=== PATIENT | male | born 1965 | race Caucasian/White ===

== ENCOUNTER 2019-12-14 08:58 | Day surgery (SDC) | payer BC, SELFPAY ==
--- NOTE | 2019-12-13 10:32 | HO.ANESPROP2 ---
Documented by User: Sherrell Araya 12/13/19 10:33 HPI - Anesthesia Eval Consult details Narrative: 54yo M for colonoscopy [facility] Past Medical History Medical History (Updated 12/13/19 @ 10:32 by Sherrell Araya) Diabetes Hypothyroidism Rectal cancer Surgical History Surgical History Hx of cholecystectomy Hx of colonoscopy Hx of hernia repair Social History Social History Smoking Status: Never smoker Second Hand Smoke Exposure: No Use of substances other than those prescribed or required for medical reasons: No Have you been hit, kicked, punched, or otherwise hurt by someone within the past year? If so, by whom?: No Advance Directives: No Advance Directives Information Provided: No Meds Allergies Allergy/AdvReac Type Severity Reaction Status Date / Time No Known Allergies Allergy Verified 12/14/19 09:41 Home Medications Medication Instructions Recorded Confirmed Type atorvastatin 1 tab PO DAILY 12/10/19 12/10/19 History canagliflozin [Invokana] 1 tab PO QAM 12/10/19 12/10/19 History gabapentin PO 12/10/19 History insulin glargine [Lantus U-100 15 unit SUBCUT BEDTIME 12/10/19 12/10/19 History Insulin] levothyroxine PO 12/10/19 History metformin 1 tab PO BID 12/10/19 12/10/19 History venlafaxine 1 cap PO DAILY 12/10/19 12/10/19 History Exam Exam Date and Time: December 13, 2019 1032 Pertinent Lab Results Pertinent Lab Results: Laboratory Tests 07/06/19 13:22 Sodium 139 Potassium 4.4 Chloride 101 BUN 18 H Creatinine 1.09 Assessment and Plan Assessment Anesthesia Assessment: Chart Reviewed Documented by User: Marialuisa Fermin 12/14/19 10:28 [facility] Past Medical History Medical History (Updated 12/13/19 @ 10:32 by Sherrell Araya) Diabetes Hypothyroidism Rectal cancer Family History Family history of problems with anesthesia: No Surgical History Surgical History Hx of cholecystectomy Hx of colonoscopy Hx of hernia repair History of Problems with Anesthesia: No Social History Social History Smoking Status: Never smoker Second Hand Smoke Exposure: No Use of substances other than those prescribed or required for medical reasons: No Have you been hit, kicked, punched, or otherwise hurt by someone within the past year? If so, by whom?: No Advance Directives: No Advance Directives Information Provided: No Meds Allergies Allergy/AdvReac Type Severity Reaction Status Date / Time No Known Allergies Allergy Verified 12/14/19 09:41 Home Medications Medication Instructions Recorded Confirmed Type atorvastatin 1 tab PO DAILY 12/10/19 12/10/19 History canagliflozin [Invokana] 1 tab PO QAM 12/10/19 12/10/19 History gabapentin PO 12/10/19 History insulin glargine [Lantus U-100 15 unit SUBCUT BEDTIME 12/10/19 12/10/19 History Insulin] levothyroxine PO 12/10/19 History metformin 1 tab PO BID 12/10/19 12/10/19 History venlafaxine 1 cap PO DAILY 12/10/19 12/10/19 History Exam Height,Weight and Vital Signs: Ht: 5ft 11 Wt: 90.9kg Vital Signs Temp Pulse Resp BP Pulse Ox 12/14/19 09:49 97.6 F 74 16 119/78 98 Pertinent Lab Results Pertinent Lab Results: 12/14/19 09:48 Glucose, Whole Blood Routine Laboratory Last Values POC Glucose 149 mg/dL (60-115) H 12/14/19 09:48 Airway Mallampati Class: II TM Dist: >3cm Neck ROM: Full Loose/Missing/Broken Teeth: Yes Heart: RRR Lungs: CTAB Assessment and Plan Assessment Anesthesia Assessment: Anesthesia Plan Discussed and Chart Reviewed Final Anesthetic Review NPO: Yes ASA Class: II Final Preanesthetic Review: No Changes in Pt Med Stat, Meds/Allgs Chart Reviewed, Consent Obtained/Reviewed and Anes Risks/Benef Reviewed Patient Risk: Low Procedure Risk: Low Anesthetic Plan Anesthetic Plan: MAC: Disposition: Standard PACU
[2019-12-14 09:49] VITALS: BP 119/78; PULSE 74; RESP 16; TEMP 36.4; O2SAT 98
[2019-12-14] MEDS: Lactated Ringers 1,000 ML 100 ML IVCONT (10:00)
[2019-12-14 10:04] LABS: Glucose, Whole Blood 149 mg/dL (60-115)
[2019-12-14 11:22] VITALS: BP 199/66; PULSE 79; RESP 16; TEMP 36.9; O2SAT 96
--- NOTE | 2019-12-14 11:27 | PM.PROC ---
Brief Operative Note Date of procedure: 12/14/19 Pre-op diagnosis: Colon cance screening/Hx of Carcinoid Post-op diagnosis: other (1 + Internal hemorrhoids, minor diverticulosis) Procedure: Colonoscopy Anesthesia: MAC (MAKENNA Eason) Surgeon: Naima Martinez Estimated blood loss (mL): 0 Pathology: none sent Condition: stable Disposition: PACU
[2019-12-14 11:42] VITALS: BP 112/77; PULSE 76; RESP 12; O2SAT 96
[2019-12-14 11:57] VITALS: BP 113/82; PULSE 76; RESP 12; TEMP 36.6; O2SAT 97
--- NOTE | 2019-12-15 10:06 | OP_ITS ---
SURGEON: Naima Martinez MD PROCEDURE PERFORMED: Colonoscopy. ESTIMATED BLOOD LOSS: No blood loss. COMPLICATIONS: No complications. ANESTHESIA: Monitored. ANESTHESIOLOGIST: Bruna Anderson CRNA ASSISTANTS: No assistant hvac mechanic. SPECIMENS: Specimens removed; none. PREOPERATIVE DIAGNOSES: Colon cancer screening, history of rectal carcinoid. POSTOPERATIVE DIAGNOSES: Negative exam, 1+ internal hemorrhoids, occasional diverticulum in the rectosigmoid region. ENGLISH TUTOR: Dr. Martinez. CONDITION: Postop, stable. FINDINGS: Digital rectal exam revealed prostate to be normal to digital palpation. Video colonoscope was introduced without difficulty. It was navigated into the rectosigmoid. There was an occasional diverticulum seen in this area. Scope easily passed through sigmoid, descending, transverse, ascending colon down into the cecum. Appendiceal orifice was seen. Ileocecal valve was well seen. No mucosal abnormalities were appreciated. Slow withdrawal of the scope was appreciated. Prep was excellent. Good mucosal detail was seen. Slow withdrawal of scope. Good rotational views. No mucosal lesions were appreciated. Exam of the rectum showed no suspicious lesions. Anorectal verge was clear. There were 1+ internal hemorrhoids noted in the anal canal. PLAN AND CURRENT RECOMMENDATIONS: Repeat asymptomatic screening in this patient will continue to be 5 years. GRAFT OR IMPLANTS: No grafts or implants. Naima Martinez MD MEN/MODL / [id number] MTDD
== END 2019-12-14 12:50 | disposition home or self-care (01) ==
PROVIDERS: PCP Internal Medicine; Visit Provider Internal Medicine Gastroenterology
PROC: 0DJD8ZZ Inspection of Lower Intestinal Tract, Via Natural or Artificial Opening Endoscopic (ICD-10-PCS; CPT 45378; principal; 2019-12-14 10:00)
DX: Z12.11 Encounter for screening for malignant neoplasm of colon (principal); Z85.040 Personal history of malignant carcinoid tumor of rectum; K57.30 Diverticulosis of large intestine without perforation or abscess without bleeding; K64.8 Other hemorrhoids; E13.9 Other specified diabetes mellitus without complications; Z79.84 Long term (current) use of oral hypoglycemic drugs; Z79.899 Other long term (current) drug therapy; Z90.49 Acquired absence of other specified parts of digestive tract; Z87.891 Personal history of nicotine dependence
CPT/HCPCS: 45378; 82947

== ENCOUNTER 2020-03-31 10:16 | Outpatient (REF) | payer BC, SELFPAY ==
[2020-03-31 13:00] LABS: Estimated Average Glucose 174 mg/dL; Hemoglobin A1c % 7.7 %
[2020-03-31 13:13] LABS: Alanine Aminotransferase 30 U/L (0-40); Albumin Level 4.7 g/dL (3.5-5.0); Alkaline Phosphatase 61 U/L (39-117); Anion Gap 15 (12-20); Aspartate Amino Transferase 22 U/L (5-37); Bilirubin Total 0.7 mg/dL (0.0-1.0); Blood Urea Nitrogen 19 mg/dL (9-16); Calcium 9.3 mg/dL (8.4-10.2); Carbon Dioxide 27 mmol/L (22-29); Chloride 102 mmol/L (96-108); Cholesterol 178 mg/dL; Estimated Glomerular Filt Rate > 60; Glucose Fasting 126 mg/dL (60-99); HDL Cholesterol 49 mg/dL; LDL Cholesterol Calculated 118 mg/dl; Potassium 4.5 mmol/L (3.3-5.1); Sodium 139 mmol/L (135-145); Total Protein 7.4 g/dL (6.5-8.0); Triglycerides 55 mg/dL
[2020-03-31 13:38] LABS: Thyroid Stimulating Hormone 0.62 uIU/mL (0.32-4.0)
[2020-03-31 13:45] LABS: Prostate Specific Antigen 2.05 ng/mL (<0.05-4.0); T4 Thyroxine 9.2 ug/dL (4.5-12.0)
== END 2020-03-31 10:17 | disposition home or self-care (01) ==
LOC: HO.MANLR 10:16
PROVIDERS: PCP Internal Medicine; Visit Provider Internal Medicine
DX: E11.9 Type 2 diabetes mellitus without complications (principal); E03.9 Hypothyroidism, unspecified; E78.00 Pure hypercholesterolemia, unspecified
CPT/HCPCS: 36415; 80053; 80061; 83036; 84153; 84436; 84443

== ENCOUNTER 2020-06-29 09:38 | Outpatient (REF) | payer BC, SELFPAY ==
[2020-06-29 11:01] LABS: Estimated Average Glucose 174 mg/dL; Hemoglobin A1c % 7.7 %
[2020-06-29 11:51] LABS: Alanine Aminotransferase 35 U/L (0-40); Albumin Level 4.6 g/dL (3.5-5.0); Alkaline Phosphatase 61 U/L (39-117); Anion Gap 14 (12-20); Aspartate Amino Transferase 29 U/L (5-37); Bilirubin Total 1.1 mg/dL (0.0-1.0); Blood Urea Nitrogen 18 mg/dL (9-16); Calcium 9.6 mg/dL (8.4-10.2); Carbon Dioxide 30 mmol/L (22-29); Chloride 103 mmol/L (96-108); Estimated Glomerular Filt Rate > 60; Glucose Random 122 mg/dL (60-115); Potassium 4.6 mmol/L (3.3-5.1); Sodium 142 mmol/L (135-145); Total Protein 7.3 g/dL (6.5-8.0)
[2020-06-29 11:58] LABS: Prostate Specific Antigen 2.22 ng/mL (<0.05-4.0); Thyroid Stimulating Hormone 1.37 uIU/mL (0.32-4.0)
== END 2020-06-29 09:39 | disposition home or self-care (01) ==
LOC: HO.WFDLDS 09:38
PROVIDERS: Visit Provider Internal Medicine
DX: Z12.5 Encounter for screening for malignant neoplasm of prostate (principal); E11.9 Type 2 diabetes mellitus without complications; E03.9 Hypothyroidism, unspecified; E78.00 Pure hypercholesterolemia, unspecified
CPT/HCPCS: 36415; 80053; 83036; 84153; 84436; 84443

== ENCOUNTER 2020-12-27 09:51 | Outpatient (REF) | payer BC, SELFPAY ==
[2020-12-27 11:12] LABS: Estimated Average Glucose 174 mg/dL; Hemoglobin A1c % 7.7 %
== END 2020-12-27 09:52 | disposition home or self-care (01) ==
LOC: HO.MANLDS 09:51
PROVIDERS: PCP Internal Medicine; Visit Provider Internal Medicine
DX: E11.9 Type 2 diabetes mellitus without complications (principal)
CPT/HCPCS: 36415; 83036

== ENCOUNTER 2021-05-04 08:33 | Outpatient (REF) | payer BC, SELFPAY ==
[2021-05-04 11:37] LABS: MANUAL DIFF FLAG NO
[2021-05-04 11:48] LABS: Basophils Percent Auto 0.6 % (0-2); Eosinophils Absolute Auto 0.2 X10*3/uL (0.0-0.4); Eosinophils Percent Auto 3.3 % (0-4); Hematocrit 48.2 % (42.0-52.0); Hemoglobin 15.4 g/dl (14.0-18.0); Imm Gran Abs Auto 0.04 X10*3/uL (0.00-0.03); Imm Gran Pct Auto 0.6 % (0.0-0.4); Lymphocytes Absolute Auto 2.7 X10*3/uL (1.2-4.9); Lymphocytes Percent Auto 38.9 % (20-40); Mean Corpuscular Hemoglobin 28.9 pg (27.0-33.0); Mean Corpuscular Volume 90.6 fL (80.0-98.0); Mean Platelet Volume 11.4 fL (9.4-12.4); Monocytes Absolute Auto 0.6 X10*3/uL (0.1-1.2); Monocytes Percent Auto 9.1 % (2-11); Neutrophils Absolute Auto 3.3 x10*3/uL (2.0-8.3); Neutrophils Percent Auto 47.5 % (45-73); Platelet Count 242 X10*3/uL (160-400); Red Blood Count 5.32 X10*6/uL (4.60-5.80); Red Cell Distribution Width 14.2 % (11.0-16.0); White Blood Count 6.9 X10*3/uL (4.8-10.8)
[2021-05-04 12:02] LABS: Appearance Urine CLEAR; Color Urine YELLOW; Glucose Urine UA >=1000 MG/DL (NEG); Leukocyte Esterase Urine NEG (NEG); Nitrite Urine NEG (NEG); PH 5.5 (5.0-8.0); Specific Gravity - Urine >= 1.030 (1.005-1.025); Urine Blood NEG (NEG); Urine Ketones NEG (NEG); Urine Protein NEG (NEG-TRACE)
[2021-05-04 12:12] LABS: Alanine Aminotransferase 38 U/L (0-40); Albumin Level 4.6 g/dL (3.5-5.0); Alkaline Phosphatase 61 U/L (39-117); Anion Gap 14 (12-20); Aspartate Amino Transferase 29 U/L (5-37); Blood Urea Nitrogen 23 mg/dL (9-16); Calcium 9.8 mg/dL (8.4-10.2); Carbon Dioxide 28 mmol/L (22-29); Chloride 101 mmol/L (96-108); Cholesterol 170 mg/dL; Estimated Glomerular Filt Rate > 60; Glucose Fasting 149 mg/dL (60-99); HDL Cholesterol 50 mg/dL; LDL Cholesterol Calculated 110 mg/dl; Potassium 4.2 mmol/L (3.3-5.1); Sodium 139 mmol/L (135-145); Total Protein 7.5 g/dL (6.5-8.0); Triglycerides 54 mg/dL
[2021-05-04 12:13] LABS: Creatinine Urine 199.06 mg/dL; Microalbum/Creatinine Ratio Ur 15.5 ug/mg cr
[2021-05-04 12:26] LABS: Mucus Urine 1+ /LPF; WBC Urine 0-2 /HPF (0-4)
[2021-05-04 12:27] LABS: RBC Urine 0 /HPF (0); Squamous Epithelial Cell Urine TRACE /LPF
[2021-05-04 12:40] LABS: Prostate Specific Antigen Scr 1.42 ng/mL (<0.05-4.0); TSH reflex Free T4 8.21 uIU/mL (0.32-4.0)
[2021-05-04 13:24] LABS: Free T4 (Free Thyroxine) 1.03 ng/dL (0.71-1.85)
== END 2021-05-04 08:34 | disposition home or self-care (01) ==
LOC: HO.WFDLDS 08:33
PROVIDERS: Visit Provider Family Medicine
DX: Z00.00 Encounter for general adult medical examination without abnormal findings (principal); Z12.5 Encounter for screening for malignant neoplasm of prostate; I10 Essential (primary) hypertension
CPT/HCPCS: 36415; 80053; 80061; 81001; 81003; 82043; 84153; 84439; 84443; 85025

== ENCOUNTER 2021-08-02 09:13 | Outpatient (REF) | payer BC, SELFPAY ==
[2021-08-02 11:49] LABS: Alanine Aminotransferase 33 U/L (0-40); Albumin Level 4.6 g/dL (3.5-5.0); Alkaline Phosphatase 59 U/L (39-117); Anion Gap 12 (12-20); Aspartate Amino Transferase 25 U/L (5-37); Bilirubin Total 0.8 mg/dL (0.0-1.0); Blood Urea Nitrogen 19 mg/dL (9-16); Calcium 9.5 mg/dL (8.4-10.2); Carbon Dioxide 27 mmol/L (22-29); Chloride 104 mmol/L (96-108); Cholesterol 192 mg/dL; Estimated Glomerular Filt Rate > 60; Glucose Fasting 127 mg/dL (60-99); HDL Cholesterol 42 mg/dL; LDL Cholesterol Calculated 133 mg/dl; Potassium 4.4 mmol/L (3.3-5.1); Sodium 139 mmol/L (135-145); Total Protein 7.5 g/dL (6.5-8.0); Triglycerides 87 mg/dL
[2021-08-02 12:13] LABS: Free T4 (Free Thyroxine) 1.19 ng/dL (0.71-1.85); Thyroid Stimulating Hormone 2.71 uIU/mL (0.32-4.0)
[2021-08-04 03:46] LABS: Triiodothyronine T3 Total 102 ng/dL (76-181)
== END 2021-08-02 09:14 | disposition home or self-care (01) ==
LOC: HO.WFDLDS 09:13
PROVIDERS: Visit Provider Family Medicine
DX: Z00.00 Encounter for general adult medical examination without abnormal findings (principal); E03.9 Hypothyroidism, unspecified
CPT/HCPCS: 36415; 80053; 80061; 84439; 84443; 84480

== ENCOUNTER 2021-11-14 09:24 | Outpatient (REF) | payer BC, SELFPAY ==
[2021-11-14 11:31] LABS: Appearance Urine Clear; Color Urine Yellow; Glucose Urine UA Negative (Negative); Leukocyte Esterase Urine Negative (Negative); Nitrite Urine Negative (Negative); PH 5.5 (5.0-9.0); Specific Gravity - Urine 1.025 (1.005-1.025); Urine Blood Negative (Negative); Urine Ketones Negative (Negative); Urine Protein Negative (Neg-Trace)
== END 2021-11-14 09:25 | disposition home or self-care (01) ==
LOC: HO.WFDLNP 09:24
PROVIDERS: Visit Provider Family Medicine
DX: Z00.00 Encounter for general adult medical examination without abnormal findings (principal)
CPT/HCPCS: 81003

== ENCOUNTER 2022-05-16 09:48 | Outpatient (REF) | payer BC, SELFPAY ==
[2022-05-16 12:19] LABS: Alanine Aminotransferase 28 U/L (0-40); Albumin Level 4.5 g/dL (3.5-5.0); Alkaline Phosphatase 51 U/L (39-117); Anion Gap 13 (12-20); Aspartate Amino Transferase 25 U/L (5-37); Blood Urea Nitrogen 21 mg/dL (9-16); Calcium 9.2 mg/dL (8.4-10.2); Carbon Dioxide 29 mmol/L (22-29); Chloride 105 mmol/L (96-108); Cholesterol 126 mg/dL; Estimated Glomerular Filt Rate > 60; Glucose Fasting 130 mg/dL (60-99); HDL Cholesterol 40 mg/dL; LDL Cholesterol Calculated 78 mg/dl; Potassium 4.1 mmol/L (3.3-5.1); Sodium 143 mmol/L (135-145); Triglycerides 43 mg/dL
[2022-05-16 12:26] LABS: Prostate Specific Antigen Scr 0.48 ng/mL (<0.05-4.0); TSH reflex Free T4 2.01 uIU/mL (0.32-4.0)
== END 2022-05-16 09:49 | disposition home or self-care (01) ==
LOC: HO.WFDLDS 09:48
PROVIDERS: Visit Provider Family Medicine
DX: Z00.00 Encounter for general adult medical examination without abnormal findings (principal); Z12.5 Encounter for screening for malignant neoplasm of prostate
CPT/HCPCS: 36415; 80053; 80061; 84153; 84443

== ENCOUNTER 2022-11-26 08:15 | Outpatient (AMB) | payer BC, SELFPAY ==
[2022-11-26 08:18] VITALS: BP 128/76; PULSE 76; RESP 12; TEMP 36.3; O2SAT 97; BMI 30.1
--- NOTE | 2022-11-26 08:18 | MHC.PC.OV ---
Vital Signs 11/26/22 08:18 Height 5 ft 11 in Weight 216 lb 2 oz BMI 30.1 BP 128/76 Blood Pressure Location Lt brachial Position Sitting Respiration 12 Pulse 76 Pulse Source Pulse Oximeter Temp 97.3 F Temp Source Temporal Artery Scan Pulse Oximetry (%) 97 Oxygen Delivery Method Room Air Intake Visit Reasons: 3 month f/u Bindery Worker Required: No Accompanied by: Self / Same As Patient Allergies No Known Allergies Allergy (Verified 11/26/22 08:24) Tobacco use date assessed: 08/20/22 Dental Screening Dental Screen Date: 11/26/22 Did you have a dental visit in the last 12 months?: Yes Did you have a dental problem in the last 6 months where you did not have access to dental care?: No Was dental information given to patient?: Patient has dentist HPI 3 month f/u HPI Details Patient?presents?for?follow-up?of?diabetes. A1c?has?been?decreasing?from?over?8%?to?7.7%?and?now?7.4%?today. He?notes?that?he?has?had?variable?shift?work?at?his?job?and?has?been?frustrated?about?having?difficulty?with?keeping?a?set?schedule.??Notes?that?this?should?be?improving?this?month. He?is?working?on?a?diabetic?diet?and?working?on?exercise;?walks?his?dog?twice?a?day. He?had?been?having?low?blood?sugars?but?this?seems?to?have?improved.??He?was?referred?to?endocrinology?but?has?not?been?contacted. 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 Dawson Holland, Priti Tejada, Jefferson Mitchell and colleagues, with an educational roxana from [employer]. Review of Systems Const Denies chills, Denies fatigue, Denies fever(s), Denies headache(s) and Denies weakness ENT Denies dizziness and Denies headache(s) Card Denies chest pain, Denies lightheadedness, Denies dyspnea and Denies other (Palpitations) Resp Denies cough, Denies dyspnea, Denies wheezing and Denies other ( shortness of breath) Musc Denies numbness and Denies tingling Neuro Denies dizziness, Denies headache(s), Denies numbness, Denies tingling, Denies paresthesias and Denies weakness Psych Denies anxiety and Denies depression Endo Denies fatigue Aller/Immun Denies wheezing Physical exam (Primary Care) Vital Signs: Last Vital Signs Temp 97.3 F 11/26/22 08:18 Pulse 76 11/26/22 08:18 Resp 12 11/26/22 08:18 BP 128/76 11/26/22 08:18 Pulse Ox 97 11/26/22 08:18 Oxygen Delivery Method Room Air 11/26/22 08:18 BMI result Body Mass Index 30.1 Tobacco/Smoking Status: Tobacco use Status Tobacco use date assessed 08/20/22 11/26/22 08:28 Patient Tobacco Use Status Former Tobacco user 11/26/22 08:28 e-Cigarette/Vaping Use Never Used 11/26/22 08:28 Thrive Assessment: Date of Thrive Assessment Date Thrive assessed 09/12/21 11/26/22 08:28 Const General: no acute distress and well developed Nutritional Appearance: well nourished and obese Orientation/consciousness: patient oriented x3 HENMT Head: Yes normocephalic and Yes atraumatic Eyes General: appearance normal, both eyes and all related structures Pupils: Equal, round and reactive pupils present EOM: EOMs intact bilaterally Resp Effort & Inspection: normal respiratory effort Auscultation: clear to auscultation bilaterally Cardio Rate: regular rate Rhythm: regular rhythm Heart sounds: S1 normal heart sound present, S2 normal heart sound present, no gallops, no murmurs and no rubs Neuro General: patient oriented x3 and gait normal Cranial nerves: Yes Equal, round and reactive pupils present Psych Affect: normal affect Results AMB Hemoglobin A1c AMB Hemoglobin A1c 7.4 % Last Edit by Annabelle Rodriguez MA on 11/26/22 08:29 Results Reviewed Results Reviewed: Laboratory Last Values Hgb A1c (Clinic) 7.4 % (4.0-6.0) H 11/26/22 08:28 Assessment and Plan Assessment & Plan (1) Diabetes: Code(s): E11.9 - Type 2 diabetes mellitus without complications Plan: Gradually?improving?diabetic?control. A1c?now?7.4%.??Goal?is?less?than?7.0% Continue to work at diabetic diet and exercise. No medication changes today but we discussed that if his control is not better at his next visit we would adjust his long-acting insulin. Gave him the phone number for Dr. Mederos, endocrinology in [place]. Coding Level of Care Code Est Pt Level 3 (00076) Diagnoses Diabetes E11.9
== END 2022-11-26 09:05 | disposition home or self-care (01) ==
PROVIDERS: PCP Family Medicine; Visit Provider Family Medicine
DX: E11.9 Type 2 diabetes mellitus without complications (principal)
CPT/HCPCS: 83036; 99213

== ENCOUNTER 2023-03-07 08:25 | Outpatient (AMB) | payer BC, SELFPAY ==
[2023-03-07 08:30] VITALS: BP 116/68; PULSE 80; RESP 12; O2SAT 96; BMI 29.7
--- NOTE | 2023-03-07 08:30 | MHC.PC.OV ---
Vital Signs 03/07/23 08:30 Height 5 ft 11 in Weight 213 lb 4 oz BMI 29.7 BP 116/68 Blood Pressure Location Lt brachial Position Sitting Respiration 12 Pulse 80 Pulse Source Pulse Oximeter Pulse Oximetry (%) 96 Oxygen Delivery Method Room Air Intake Visit Reasons: follow-up diabetes Intake Note: Patient reports he is here to follow up with diabetic care. Patient states he has no concerns at this time. Patient's last A1C was 7.4 on 11/26/22. Preparation Plant Repairer Required: No Accompanied by: Self / Same As Patient Allergies No Known Allergies Allergy (Verified 03/07/23 08:41) Medication List - Last Reconciled 03/07/23 by Geo Funk MD atorvastatin 40 mg PO DAILY 90 days canagliflozin (Invokana) 100 mg PO QAM 90 days gabapentin 300 mg PO QID 90 days glipizide ER 10 mg PO DAILY 90 days insulin syringe-needle U-100 (BD Insulin Syringe Ultra-Fine) USE 1 needle ONCE DAILY TO administer insulin Lantus U-100 Insulin (insulin glargine) 17 units (0.17 mL) subcut BEDTIME 30 days NS levothyroxine One tab daily and an additional half tab on Mondays and Fridays PO daily; 30 days metformin 1,000 mg PO BID 90 days venlafaxine ER 37.5 mg PO DAILY 90 days Tobacco use date assessed: 08/20/22 HPI follow-up diabetes HPI Details 57 y/o male presents to f/u diabetes. Last A1c 11/26/22 7.4% and had been gradually improving. He is on metformin 1000mg, Lantus 17 units, glipizide 10mg, invokana 100mg. A1c today 03/07/23 is 7.5%. He states he did not have his metformin for a bit due to refill issues. 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 Dawson Holland, Priti Tejada, Jefferson Mitchell and colleagues, with an educational roxana from [employer]. Review of Systems Const Denies chills, Denies fatigue, Denies fever(s), Denies headache(s) and Denies weakness ENT Denies dizziness and Denies headache(s) Card Denies dyspnea Resp Denies cough, Denies dyspnea, Denies wheezing and Denies other (shortness of breath) Musc Denies numbness and Denies tingling Neuro Denies dizziness, Denies headache(s), Denies numbness, Denies tingling and Denies weakness Psych Denies anxiety and Denies depression Endo Denies fatigue Aller/Immun Denies wheezing Physical exam (Primary Care) Vital Signs: Last Vital Signs Pulse 80 03/07/23 08:30 Resp 12 03/07/23 08:30 BP 116/68 03/07/23 08:30 Pulse Ox 96 03/07/23 08:30 Oxygen Delivery Method Room Air 03/07/23 08:30 BMI result Body Mass Index 29.7 Tobacco/Smoking Status: Tobacco use Status Tobacco use date assessed 08/20/22 03/07/23 08:38 Patient Tobacco Use Status Former Tobacco user 03/07/23 08:38 e-Cigarette/Vaping Use Never Used 03/07/23 08:38 Thrive Assessment: Date of Thrive Assessment Date Thrive assessed 09/12/21 03/07/23 08:38 Const General: well developed; No acute distress Nutritional Appearance: well nourished Orientation/consciousness: patient oriented x3 HENMT Head: Yes normocephalic and Yes atraumatic Eyes General: appearance normal, both eyes and all related structures Pupils: Equal, round and reactive pupils present EOM: EOMs intact bilaterally Resp Effort & Inspection: normal respiratory effort Neuro General: patient oriented x3 and gait normal Cranial nerves: Yes Equal, round and reactive pupils present Psych Affect: normal affect Results AMB Hemoglobin A1c AMB Hemoglobin A1c 7.5 % Last Edit by Emely Boswell CMA on 03/07/23 08:46 Results Reviewed Results Reviewed: Laboratory Last Values Hgb A1c (Clinic) 7.5 % (4.0-6.0) H 03/07/23 08:46 Assessment and Plan Assessment & Plan (1) Diabetes: Code(s): E11.9 - Type 2 diabetes mellitus without complications Plan: He?has?increased?from?7.4%?to?7.5%. However,?patient?was?out?of?his?medication?for?a?couple?of?weeks.??He?also?notes?some?dietary?indiscretions?over?the?holidays. Will?increase?his?Lantus?from?17?units?to?18?units?q.h.s.. This?represents?a?small?change?but?he?will?hopefully?have?further?improvements?to?his?blood?sugar?control?if?he?is?able?to?get?his?metformin?on?time?and?improve?diet?now?that?we?are?past?the?holidays. Referring?him?to??[place] Last?eye?exam?was?in?March?and?he?has?another?coming?up?next?month Orders: Orders AMB Hemoglobin A1c Today E11.9 - Type 2 diabetes mellitus without complications Referrals Endocrinology Referral E11.9 - Type 2 diabetes mellitus without complications Coding Level of Care Code Est Pt Level 3 (96635) Diagnoses Diabetes E11.9
== END 2023-03-07 09:18 | disposition home or self-care (01) ==
PROVIDERS: PCP Family Medicine; Visit Provider Family Medicine
DX: E11.9 Type 2 diabetes mellitus without complications (principal)
CPT/HCPCS: 83036; 99213

== ENCOUNTER 2023-06-06 08:44 | Outpatient (AMB) | payer BC, SELFPAY ==
--- NOTE | 2023-06-06 08:49 | MHC.PC.OV ---
Vital Signs 06/06/23 08:50 Height 5 ft 11 in Weight 212 lb 2 oz BMI 29.6 BP 120/68 Blood Pressure Location Lt brachial Position Sitting Pulse 83 Pulse Source Pulse Oximeter Pulse Oximetry (%) 96 Oxygen Delivery Method Room Air Intake Visit Reasons: follow-up diabetes Intake Note: Patient is here to follow up on diabetes today. Allergies No Known Allergies Allergy (Verified 03/07/23 08:41) Medication List - Last Reconciled 06/06/23 by Geo Funk MD atorvastatin 40 mg PO DAILY 90 days canagliflozin (Invokana) 100 mg PO QAM 90 days gabapentin 300 mg PO QID 90 days glipizide ER 10 mg PO DAILY 90 days insulin syringe-needle U-100 (BD Insulin Syringe Ultra-Fine) USE 1 needle ONCE DAILY TO administer insulin Lantus U-100 Insulin (insulin glargine) 17 units (0.17 mL) subcut BEDTIME 30 days NS levothyroxine One tab daily and an additional half tab on Mondays and Fridays PO daily; 30 days metformin 1,000 mg PO BID 90 days venlafaxine ER 37.5 mg PO DAILY 90 days Tobacco use date assessed: 06/06/23 Dental Screening Dental Screen Date: 06/06/23 Did you have a dental visit in the last 12 months?: Yes Did you have a dental problem in the last 6 months where you did not have access to dental care?: No Was dental information given to patient?: Patient has dentist HPI follow-up diabetes HPI Details 58 y/o male presents to f/u diabetes. Last A1c 03/07/23 7.5%. Had increased Lantus from 17 units to 18 units. A1c today 06/06/23 is 7.5%. He is on metformin 1000mg b.i.d, glipizide 10mg, invokana 100mg, Lantus 18 units. He checks his blood sugars at home - he notes blood sugars have been in the 88s-110s. He continues to watch the sugars and starches in his diet. Last diabetic eye exam 04/23/23 was fine. HPI Comments History of Present Illness Details Documentation assistance for Geo Funk MD, was provided by Oseas Albert,? Edger Machine Operator on 06/06/2023 9:11 AM EST. I, Dr. Funk, have read, observed, and verified documentation. 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 1. Little interest or pleasure in doing things: not at all 2. Feeling down, depressed, or hopeless: not at all 3. Trouble falling or staying asleep, or sleeping too much: not at all 4. Feeling tired or having little energy: not at all 5. Poor appetite or overeating: not at all 6. Feeling bad about yourself - or that you are a failure or have let yourself or your family down: not at all 7. Trouble concentrating on things, such as reading the newspaper or watching television: not at all 8. Moving or speaking so slowly that other people could have noticed. Or the opposite - being so fidgety or restless that you have been moving around a lot more than usual: not at all 9. Thoughts that you would be better off or of hurting yourself in some way: not at all Total score: 0 Depression Screening Interpretation: Negative Depression Screening Done: Yes Source: Developed by Drs. Dawson Holland, Priti Tejada, Jefferson Mitchell and colleagues, with an educational roxana from [employer]. Thrive Questionnaire Date Thrive assessed: 06/06/23 I am a: Patient What is your living situation today?: I have a steady place to live Within the past 12 months, did the food you bought not last and you didn't have the money to get more?: Never true Within the past 12 months, did you worry whether your food would run out before you got money to buy more?: Never true Do you have trouble paying for medicines?: No Do you have trouble getting transportation to medical appointments?: No Do you have trouble paying your heating and electricity bill?: No Do you have trouble taking care of your child, family member or friend?: No Do you have trouble with day-to-day activities such as bathing, preparing meals, shopping, managing finances, etc.?: No Are you currently unemployed and looking for a job?: No Are you interested in more education?: No THRIVE Score: 0 AUDIT C Alcohol Use Questionnaire (AUDIT-C) 1. How often do you have a drink containing alcohol?: Never 3. How often do you have six or more drinks on one occasion?: Never Total Score: 0 MARIA EUGENIA-7 AMB Questionnaire MARIA EUGENIA-7 Date MARIA EUGENIA - 7 assessed: 06/06/23 Feeling nervous, anxious, or on edge: 0 = Not at all Not being able to stop or control worryin = Not at all Worrying too much about different things: 0 = Not at all Trouble relaxin = Not at all Being so restless that it is hard to sit still: 0 = Not at all Becoming easily annoyed or irritable: 0 = Not at all Feeling afraid as if something awful might happen: 0 = Not at all Total MARIA EUGENIA-7 score (0-4 normal; 5-9 mild; 10-14 moderate; 15-21 severe): 0 Source: Developed by Drs. Dawson Holland, Priti Tejada, Jefferson Mitchell and colleagues, with an educational roxana from [employer]. Review of Systems Const Denies chills, Denies fatigue, Denies fever(s), Denies headache(s) and Denies weakness ENT Denies dizziness and Denies headache(s) Card Denies dyspnea Resp Denies cough, Denies dyspnea, Denies wheezing and Denies other (shortness of breath) Musc Denies numbness and Denies tingling Neuro Denies dizziness, Denies headache(s), Denies numbness, Denies tingling and Denies weakness Psych Denies anxiety and Denies depression Endo Denies fatigue Aller/Immun Denies wheezing Physical exam (Primary Care) Vital Signs: Last Vital Signs Pulse 83 06/06/23 08:50 BP 120/68 06/06/23 08:50 Pulse Ox 96 06/06/23 08:50 Oxygen Delivery Method Room Air 06/06/23 08:50 BMI result Body Mass Index 29.6 Tobacco/Smoking Status: Tobacco use Status Tobacco use date assessed 06/06/23 06/06/23 08:59 Patient Tobacco Use Status Former Tobacco user 06/06/23 08:59 e-Cigarette/Vaping Use Never Used 06/06/23 08:59 PHQ-9: PHQ-9 Score PHQ-9: Total score 0 06/06/23 09:12 Depression Screening Interpretation: Negative Thrive Assessment: Date of Thrive Assessment Date Thrive assessed 06/06/23 06/06/23 08:59 Const General: well developed; No acute distress Nutritional Appearance: well nourished Orientation/consciousness: patient oriented x3 HENMT Head: Yes normocephalic and Yes atraumatic Eyes General: appearance normal, both eyes and all related structures Pupils: Equal, round and reactive pupils present EOM: EOMs intact bilaterally Resp Effort & Inspection: normal respiratory effort Auscultation: clear to auscultation bilaterally Cardio Rate: regular rate Rhythm: regular rhythm Heart sounds: S1 normal heart sound present, S2 normal heart sound present, no gallops, no murmurs and no rubs Neuro General: patient oriented x3 and gait normal Cranial nerves: Yes Equal, round and reactive pupils present Psych Affect: normal affect Assessment and Plan Assessment & Plan (1) Diabetes: Code(s): E11.9 - Type 2 diabetes mellitus without complications Plan: A1c?remains?at?7.5%?despite?increasing?Lantus?slightly?from?17-18?units - patient?had?said?he?wanted?to?work?on?lifestyle?changes.. Goal?is?less?than?7.0% Will?have?him?increase?Lantus?from?18?units?to?22?units?daily Continue?glipizide If?morning?blood?sugars?are?going?lower?than?70?he?will?cut?back?on?Lantus?to?20?units?daily?and?let?me?know.??Would?adjust?his?glipizide Last?eye?exam?was?in?March?and?was?okay Orders: Orders AMB Hemoglobin A1c Today Z13.9 - Encounter for screening, unspecified Medications: Changed From Lantus U-100 Insulin (insulin glargine) 17 units (0.17 mL) subcut BEDTIME 30 days 6 mL 6RF NS To Lantus U-100 Insulin (insulin glargine) 22 units (0.22 mL) subcut BEDTIME 30 days 9 mL 6RF NS Coding Level of Care Code Est Pt Level 3 (38950) Diagnoses Diabetes E11.9
[2023-06-06 08:50] VITALS: BP 120/68; PULSE 83; O2SAT 96; BMI 29.6
== END 2023-06-06 09:20 | disposition home or self-care (01) ==
PROVIDERS: PCP Family Medicine; Visit Provider Family Medicine
DX: E11.9 Type 2 diabetes mellitus without complications (principal)
CPT/HCPCS: 83036; 99213

== ENCOUNTER 2023-09-05 08:26 | Outpatient (AMB) | payer BC, SELFPAY ==
--- NOTE | 2023-09-05 08:32 | MHC.PC.OV ---
Vital Signs 09/05/23 08:33 Height 5 ft 11 in Weight 206 lb BMI 28.7 BP 112/60 Blood Pressure Location Lt brachial Position Sitting Respiration 12 Pulse 81 Pulse Source Pulse Oximeter Pulse Oximetry (%) 95 Oxygen Delivery Method Room Air Intake Visit Reasons: f/u diabetes Intake Note: Patient is here to follow up for diabetic care. Qa Lead Required: No Accompanied by: Self / Same As Patient Allergies No Known Allergies Allergy (Verified 09/05/23 08:38) Medication List - Last Reconciled 09/05/23 by Geo Funk MD atorvastatin 40 mg PO DAILY 90 days canagliflozin (Invokana) 100 mg PO QAM 90 days gabapentin 300 mg PO QID 90 days glipizide ER 10 mg PO DAILY 90 days insulin syringe-needle U-100 (BD Insulin Syringe Ultra-Fine) USE 1 needle ONCE DAILY TO administer insulin Lantus U-100 Insulin (insulin glargine) 22 units (0.22 mL) subcut BEDTIME 30 days NS levothyroxine One tab daily and an additional half tab on Mondays and Fridays PO daily; 30 days metformin 1,000 mg PO BID 90 days venlafaxine ER 37.5 mg PO DAILY 90 days Tobacco use date assessed: 06/06/23 Dental Screening Dental Screen Date: 06/06/23 HPI f/u diabetes HPI Details 58 y/o male presents to f/u diabetes. Last A1c 06/06/23 7.5% and had remained the same despite increasing Lantus slightly. Pt stated he had wanted to work on lifestyle changes. Had increased Lantus from 18 units to 22 units. A1c today 09/05/23 is 7.1%. He is on metformin 1000mg b.i.d, glipizide 10mg, invokana 100mg, Lantus 22 units. 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 Dawson Holland, Priti Tejada, Jefferson Mitchell and colleagues, with an educational roxana from [employer]. Review of Systems Const Denies chills, Denies fatigue, Denies fever(s), Denies headache(s) and Denies weakness ENT Denies dizziness and Denies headache(s) Card Denies dyspnea Resp Denies cough, Denies dyspnea, Denies wheezing and Denies other (shortness of breath) Musc Denies numbness and Denies tingling Neuro Denies dizziness, Denies headache(s), Denies numbness, Denies tingling and Denies weakness Psych Denies anxiety and Denies depression Endo Denies fatigue Aller/Immun Denies wheezing Physical exam (Primary Care) Vital Signs: Last Vital Signs Pulse 81 09/05/23 08:33 Resp 12 09/05/23 08:33 BP 112/60 09/05/23 08:33 Pulse Ox 95 09/05/23 08:33 Oxygen Delivery Method Room Air 09/05/23 08:33 BMI result Body Mass Index 28.7 Tobacco/Smoking Status: Tobacco use Status Tobacco use date assessed 06/06/23 09/05/23 08:38 Patient Tobacco Use Status Former Tobacco user 09/05/23 08:38 e-Cigarette/Vaping Use Never Used 09/05/23 08:38 Thrive Assessment: Date of Thrive Assessment Date Thrive assessed 06/06/23 09/05/23 08:38 Const General: well developed; No acute distress Nutritional Appearance: well nourished Orientation/consciousness: patient oriented x3 HENMT Head: Yes normocephalic and Yes atraumatic Eyes General: appearance normal, both eyes and all related structures Pupils: Equal, round and reactive pupils present EOM: EOMs intact bilaterally Resp Effort & Inspection: normal respiratory effort Neuro General: patient oriented x3 and gait normal Cranial nerves: Yes Equal, round and reactive pupils present Psych Affect: normal affect Assessment and Plan Assessment & Plan (1) Diabetes: Code(s): E11.9 - Type 2 diabetes mellitus without complications Plan: A1c?today?7.1%?is?much?improved?and?nearly?at?goal?of?less?than?7.0% Continue?current?medication?regimen-no?changes?made?today. Patient?now?followed?by?Dr. Slade, endocrinology.??She?is?working?on?getting?him?a?continuous?glucose?monitor. Last?diabetic?eye?exam?was?in?March.??Up-to-date No?evidence?paresthesias/diabetic?neuropathy?in?distal?toe?tips?bilaterally. (2) Wound of foot: Code(s): S91.309A - Unspecified open wound, unspecified foot, initial encounter Plan: Small?wound?on?foot?at?right?heel No?evidence?of?infection.??Mild?callus?surrounding?this. Patient?had?tetanus?shot?in?[id number]-date No?need?for?antibiotic?at?this?time.??Advised?patient?to?avoid?calluses?with?warm?Epson?salt?soaks?and?moisturizing?creams. Watch?for?any?redness?or?pain?or?swelling?or?drainage.??Will?let?me?know?if?this?occurs.??Should?resolve?spontaneously. Orders: Orders Lipid Panel Today Z00.00 - Encounter for general adult medical examination without abnormal findings Prostate Specific Antigen Scr Today Z12.5 - Encounter for screening for malignant neoplasm of prostate Comprehensive [place]. Panel Fast Today Z00.00 - Encounter for general adult medical examination without abnormal findings Microalbumin, Random (w Creat) Today I10 - Essential (primary) hypertension TSH reflex Free T4 Today Z00.00 - Encounter for general adult medical examination without abnormal findings UA and rflx microscopic Today Z00.00 - Encounter for general adult medical examination without abnormal findings Coding Level of Care Code Est Pt Level 3 (59080) Diagnoses Diabetes E11.9 Wound of foot S91.309A
[2023-09-05 08:33] VITALS: BP 112/60; PULSE 81; RESP 12; O2SAT 95; BMI 28.7
== END 2023-09-05 09:27 | disposition home or self-care (01) ==
PROVIDERS: PCP Family Medicine; Visit Provider Family Medicine
DX: E11.9 Type 2 diabetes mellitus without complications (principal); S91.309A Unspecified open wound, unspecified foot, initial encounter
CPT/HCPCS: 83036; 99213

== ENCOUNTER 2023-12-09 10:14 | Outpatient (REF) | payer BC, SELFPAY ==
[2023-12-09 14:40] LABS: Appearance Urine Turbid; Color Urine Yellow; Glucose Urine UA Negative (Negative); Leukocyte Esterase Urine Negative (Negative); Nitrite Urine Negative (Negative); PH 5.5 (5.0-9.0); Specific Gravity - Urine >= 1.030 (1.005-1.025); Urine Blood Negative (Negative); Urine Ketones Trace mg/dL (Negative); Urine Protein Negative (Neg-Trace)
[2023-12-09 15:17] LABS: Alanine Aminotransferase 23 U/L (0-40); Albumin Level 4.3 g/dL (3.5-5.0); Alkaline Phosphatase 53 U/L (39-117); Anion Gap 13 (12-20); Aspartate Amino Transferase 19 U/L (5-37); Bilirubin Total 0.8 mg/dL (0.0-1.0); Blood Urea Nitrogen 12 mg/dL (9-16); Calcium 9.4 mg/dL (8.4-10.2); Carbon Dioxide 30 mmol/L (22-29); Chloride 104 mmol/L (96-108); Cholesterol 98 mg/dL (<200); Estimated Glomerular Filt Rate > 60; Glucose Fasting 166 mg/dL (60-99); HDL Cholesterol 45 mg/dL (>40); LDL Cholesterol Calculated 31 mg/dL (<100); Potassium 4.1 mmol/L (3.3-5.1); Sodium 143 mmol/L (135-145); Total Protein 7.1 g/dL (6.5-8.0); Triglycerides 114 mg/dL (<150)
[2023-12-09 15:21] LABS: TSH reflex Free T4 4.03 uIU/mL (0.32-4.0)
[2023-12-09 15:25] LABS: Creatinine Urine 306.63 mg/dL; Microalbum/Creatinine Ratio Ur 5.8 ug/mg cr (<30)
[2023-12-09 15:26] LABS: Prostate Specific Antigen Scr 0.48 ng/mL (<0.05-4.0)
== END 2023-12-09 10:15 | disposition home or self-care (01) ==
LOC: HO.WFDLDS 10:14
PROVIDERS: Visit Provider Family Medicine
DX: Z00.00 Encounter for general adult medical examination without abnormal findings (principal); I10 Essential (primary) hypertension; Z12.5 Encounter for screening for malignant neoplasm of prostate
CPT/HCPCS: 36415; 80053; 80061; 81003; 82043; 82570; 84153; 84439; 84443

== ENCOUNTER 2023-12-12 08:42 | Outpatient (AMB) | payer BC, SELFPAY ==
--- NOTE | 2023-12-12 08:55 | MHC.PC.OV ---
Vital Signs 12/12/23 09:03 Height 5 ft 11 in Weight 209 lb 8 oz BMI 29.2 BP 124/60 Blood Pressure Location Lt brachial Position Sitting Respiration 16 Pulse 86 Pulse Source Pulse Oximeter Temp 98.1 F Temp Source Temporal Artery Scan Pulse Oximetry (%) 96 Oxygen Delivery Method Room Air Intake Visit Reasons: FU DIABETES Intake Note: f/u DM Allergies No Known Allergies Allergy (Verified 12/12/23 09:03) Medication List - Last Reconciled 12/12/23 by Geo Funk MD atorvastatin 40 mg PO DAILY 90 days canagliflozin (Invokana) 100 mg PO QAM 90 days gabapentin 300 mg PO QID 90 days glipizide ER 10 mg PO DAILY 90 days insulin syringe-needle U-100 (BD Insulin Syringe Ultra-Fine) USE 1 needle ONCE DAILY TO administer insulin Lantus U-100 Insulin (insulin glargine) 22 units (0.22 mL) subcut BEDTIME 30 days NS levothyroxine One tab daily and an additional half tab on Mondays and Fridays PO daily; 30 days metformin 1,000 mg PO BID 90 days venlafaxine ER 37.5 mg PO DAILY 90 days Tobacco use date assessed: 06/06/23 Dental Screening Dental Screen Date: 06/06/23 HPI FU DIABETES HPI Details 58 y/o male presents to f/u diabetes. Last A1c 09/05/23 7.1%. He is on metformin 1000mg b.i.d, glipizide 10mg, invokana 100mg, Lantus 22 units. A1c today 12/12/23 is 7.6%. He notes he had been using a meter and had a recent A1c of 6.7%. He notes blood sugars at home have been fine. Has been watching his diet and has an active lifestyle. Last eye exam in March. Labs drawn 12/09/23. Reviewed labs with pt. Triglycerides 114. TC 98. LDL 31. HDL 45. He is on artovastatin 40mg daily. TSH mildly elevated at 4.03 uIU/mL. He is on levothyroxine. HPI Comments History of Present Illness Details Documentation assistance for Geo Funk MD, was provided by Oseas Albert, Vice President Of Compliance on 12/12/2023 at 9:20 AM EST. I, Dr. Funk, have read, observed, and verified documentation. 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 1. Little interest or pleasure in doing things: not at all 2. Feeling down, depressed, or hopeless: not at all 3. Trouble falling or staying asleep, or sleeping too much: not at all 4. Feeling tired or having little energy: not at all 5. Poor appetite or overeating: not at all 6. Feeling bad about yourself - or that you are a failure or have let yourself or your family down: not at all 7. Trouble concentrating on things, such as reading the newspaper or watching television: not at all 8. Moving or speaking so slowly that other people could have noticed. Or the opposite - being so fidgety or restless that you have been moving around a lot more than usual: not at all 9. Thoughts that you would be better off or of hurting yourself in some way: not at all Total score: 0 Source: Developed by Drs. Dawson Holalnd, Priti Tejada, Jefferson Mitchell and colleagues, with an educational roxana from [email or web address]. Thrive Questionnaire Date Thrive assessed: 12/09/23 I am a: Patient What is your living situation today?: I have a steady place to live Within the past 12 months, did the food you bought not last and you didn't have the money to get more?: I choose not to answer this question Within the past 12 months, did you worry whether your food would run out before you got money to buy more?: I choose not to answer this question Do you have trouble paying for medicines?: No Do you have trouble getting transportation to medical appointments?: No Do you have trouble paying your heating and electricity bill?: No Do you have trouble taking care of your child, family member or friend?: No Do you have trouble with day-to-day activities such as bathing, preparing meals, shopping, managing finances, etc.?: No Are you currently unemployed and looking for a job?: No Are you interested in more education?: I choose not to answer this question Please select the resources that you would like help with: None Currently or been in a relationship where the following occur: I choose not to answer THRIVE Score: 0 AUDIT C Alcohol Use Questionnaire (AUDIT-C) 1. How often do you have a drink containing alcohol?: Never Total Score: 0 MARIA EUGENIA-7 AMB Questionnaire MARIA EUGENIA-7 Date MARIA EUGENIA - 7 assessed: 06/06/23 Feeling nervous, anxious, or on edge: 0 = Not at all Not being able to stop or control worryin = Not at all Worrying too much about different things: 0 = Not at all Trouble relaxin = Not at all Being so restless that it is hard to sit still: 0 = Not at all Becoming easily annoyed or irritable: 0 = Not at all Feeling afraid as if something awful might happen: 0 = Not at all Total MARIA EUGENIA-7 score (0-4 normal; 5-9 mild; 10-14 moderate; 15-21 severe): 0 Source: Developed by Drs. Dawson Holland, Priti Tejada, Jefferson Mitchell and colleagues, with an educational roxana from [email or web address]. Review of Systems Const Denies chills, Denies fatigue, Denies fever(s), Denies headache(s) and Denies weakness ENT Denies dizziness and Denies headache(s) Card Denies dyspnea Resp Denies cough, Denies dyspnea, Denies wheezing and Denies other (shortness of breath) Musc Denies numbness and Denies tingling Neuro Denies dizziness, Denies headache(s), Denies numbness, Denies tingling and Denies weakness Psych Denies anxiety and Denies depression Endo Denies fatigue Aller/Immun Denies wheezing Physical exam (Primary Care) Vital Signs: Last Vital Signs Temp 98.1 F 12/12/23 09:03 Pulse 86 12/12/23 09:03 Resp 16 12/12/23 09:03 BP 124/60 12/12/23 09:03 Pulse Ox 96 12/12/23 09:03 Oxygen Delivery Method Room Air 12/12/23 09:03 BMI result Body Mass Index 29.2 Tobacco/Smoking Status: Tobacco use Status Tobacco use date assessed 06/06/23 12/12/23 08:56 Patient Tobacco Use Status Former Tobacco user 12/12/23 08:56 e-Cigarette/Vaping Use Never Used 12/12/23 08:56 PHQ-9: PHQ-9 Score PHQ-9: Total score 0 12/12/23 09:04 Thrive Assessment: Date of Thrive Assessment Date Thrive assessed 12/09/23 12/12/23 08:56 Currently or been in a relationship where the following occur: I choose not to answer Const General: well developed; No acute distress Nutritional Appearance: well nourished Orientation/consciousness: patient oriented x3 HENMT Head: Yes normocephalic and Yes atraumatic Eyes General: appearance normal, both eyes and all related structures Pupils: Equal, round and reactive pupils present EOM: EOMs intact bilaterally Resp Effort & Inspection: normal respiratory effort Auscultation: clear to auscultation bilaterally Cardio Rate: regular rate Rhythm: regular rhythm Heart sounds: S1 normal heart sound present, S2 normal heart sound present, no gallops, no murmurs and no rubs Neuro General: patient oriented x3 and gait normal Cranial nerves: Yes Equal, round and reactive pupils present Psych Affect: normal affect Coding Level of Care Code Est Pt Level 4 (12273) Diagnoses Diabetes E11.9 Hyperlipidemia E78.5 Hypothyroidism E03.9 Wound of foot S91.309A Assessment & Plan Assessment & Plan (1) Diabetes: Code(s): E11.9 - Type 2 diabetes mellitus without complications Category: Medical Plan: A1c?in?office?is?measured?at?7.6%?today?but?his?continuous?glucose?monitor?has?recently?shown?6.7%?and?this?correlates?with?at?home?fingerstick?measurements?as?well. He?also?notes?that?he?still?gets?some?low?blood?sugars?into?the?60s. No?changes?made?to?his?medication?regimen?today.??I?advised?he?discuss?with?his?pacs specialist He?had?his?last?eye?exam?in?04/15/2023?and?says?he?thinks?he?has?his?next?appointment?already?scheduled. Patient?had?a?wound?on?his?heel?at?last?visit?but?this?has?resolved. (2) Hyperlipidemia: Code(s): E78.5 - Hyperlipidemia, unspecified Category: Medical Plan: Lipids?are?controlled?on?atorvastatin Continue?current?medication (3) Hypothyroidism: Code(s): E03.9 - Hypothyroidism, unspecified Category: Medical Plan: TSH?very?slightly?above?normal?range No?medication?changes?today.??We?can?check?this?at?a?subsequent?visit. (4) Wound of foot: Code(s): S91.309A - Unspecified open wound, unspecified foot, initial encounter Category: Medical Plan: Resolve
[2023-12-12 09:03] VITALS: BP 124/60; PULSE 86; RESP 16; TEMP 36.7; O2SAT 96; BMI 29.2
== END 2023-12-12 09:28 | disposition home or self-care (01) ==
PROVIDERS: PCP Family Medicine; Visit Provider Family Medicine
DX: E11.9 Type 2 diabetes mellitus without complications (principal); E78.5 Hyperlipidemia, unspecified; E03.9 Hypothyroidism, unspecified; S91.309A Unspecified open wound, unspecified foot, initial encounter

== ENCOUNTER → 2023-12-12 08:42 | Outpatient (BNVA) | payer BC, SELFPAY | PROVIDERS: PCP Family Medicine; Visit Provider Family Medicine ==

== ENCOUNTER 2024-02-03 09:30 | Outpatient (AMB) | payer BC, SELFPAY ==
--- NOTE | 2024-02-03 09:32 | A.OFFPC_ITS ---
Vital Signs 02/03/24 09:43 Height 5 ft 11 in Weight 210 lb 6 oz BMI 29.3 BP 118/62 Blood Pressure Location Rt brachial Position Sitting Respiration 14 Pulse 81 Pulse Source Pulse Oximeter Temp 98.2 F Temp Source Oral Pulse Oximetry (%) 96 Oxygen Delivery Method Room Air Intake Visit Reasons: MEDICATION ISSUES Intake Note: pt is feeling depressed with disturbed thoughts Allergies No Known Allergies Allergy (Verified 02/03/24 09:37) Medication List - Last Reconciled 02/03/24 by Geo Funk MD atorvastatin 40 mg PO DAILY 90 days canagliflozin (Invokana) 100 mg PO QAM 90 days gabapentin 300 mg PO QID 90 days insulin syringe-needle U-100 (BD Insulin Syringe Ultra-Fine) USE 1 needle ONCE DAILY TO administer insulin Lantus U-100 Insulin (insulin glargine) 22 units (0.22 mL) subcut BEDTIME 30 days NS levothyroxine One tab daily and an additional half tab on Mondays and Fridays PO daily; 30 days metformin 1,000 mg PO BID 90 days venlafaxine ER 37.5 mg PO DAILY 90 days Tobacco use date assessed: 06/06/23 Dental Screening Dental Screen Date: 06/06/23 HPI MEDICATION ISSUES HPI Details 58 y/o male presents?with?concerns?of?worsened?depression?and?episode?of?SI?x1?a?week?ago. He?has?been?taking?levothyroxine?37.5?mg?daily.??He?has?never?had?therapist. Patient?had?texted?his??that?he?was?of?killing?himself?not?have?any?plan?of? what?he?do. ?convinced?him?with?some?effort?to?kwasi l?a?crisis?hotline?which?patient?says?helped. 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 1. Little interest or pleasure in doing things: more than half the days 2. Feeling down, depressed, or hopeless: nearly every day 3. Trouble falling or staying asleep, or sleeping too much: nearly every day 4. Feeling tired or having little energy: several days 5. Poor appetite or overeating: more than half the days 6. Feeling bad about yourself - or that you are a failure or have let yourself or your family down: nearly every day 7. Trouble concentrating on things, such as reading the newspaper or watching television: not at all 8. Moving or speaking so slowly that other people could have noticed. Or the opposite - being so fidgety or restless that you have been moving around a lot more than usual: not at all 9. Thoughts that you would be better off or of hurting yourself in some way: several days (pt only said it one day has not had the thought since ) Total score: 15 Depression Screening Interpretation: Positive Depression Screening Done: Yes 59684 - PHQ-9 Billing: Yes Source: Developed by Drs. Dawson Holland, Priti Tejada, Jefferson Mitchell and colleagues, with an educational roxana from [employer]. Thrive Questionnaire Date Thrive assessed: 02/03/24 I am a: Patient What is your living situation today?: I have a steady place to live Within the past 12 months, did the food you bought not last and you didn't have the money to get more?: I choose not to answer this question Within the past 12 months, did you worry whether your food would run out before you got money to buy more?: I choose not to answer this question Do you have trouble paying for medicines?: No Do you have trouble getting transportation to medical appointments?: No Do you have trouble paying your heating and electricity bill?: No Do you have trouble taking care of your child, family member or friend?: No Do you have trouble with day-to-day activities such as bathing, preparing meals, shopping, managing finances, etc.?: No Are you currently unemployed and looking for a job?: No Are you interested in more education?: I choose not to answer this question Please select the resources that you would like help with: None Currently or been in a relationship where the following occur: I choose not to answer THRIVE Score: 0 MARIA EUGENIA-7 AMB Questionnaire MARIA EUGENIA-7 Date MARIA EUGENIA - 7 assessed: 02/03/24 Feeling nervous, anxious, or on edge: 0 = Not at all Not being able to stop or control worryin = Nearly every day Worrying too much about different things: 0 = Not at all Trouble relaxin = Not at all Being so restless that it is hard to sit still: 0 = Not at all Becoming easily annoyed or irritable: 0 = Not at all Feeling afraid as if something awful might happen: 0 = Not at all Total MARIA EUGENIA-7 score (0-4 normal; 5-9 mild; 10-14 moderate; 15-21 severe): 3 Source: Developed by Drs. Dawson Holland, Priti Tejada, Jefferson Mitchell and colleagues, with an educational roxana from [employer]. MARIA EUGENIA-7 Assessment Billing MARIA EUGENIA-7 Assessment Tool: MARIA EUGENIA-7 Assessment 98460 Review of Systems Const Denies chills, Denies fatigue, Denies fever(s), Denies headache(s) and Denies weakness ENT Denies dizziness and Denies headache(s) Card Denies chest pain, Denies lightheadedness, Denies dyspnea and Denies other (Palpitations) Resp Denies cough, Denies dyspnea, Denies wheezing and Denies other ( shortness of breath) Musc Denies numbness and Denies tingling Neuro Denies dizziness, Denies headache(s), Denies numbness, Denies tingling, Denies paresthesias and Denies weakness Psych Denies anxiety and Reports depression Endo Denies fatigue Aller/Immun Denies wheezing Physical exam (Primary Care) Vital Signs: Last Vital Signs Temp 98.2 F 02/03/24 09:43 Pulse 81 02/03/24 09:43 Resp 14 02/03/24 09:43 BP 118/62 02/03/24 09:43 Pulse Ox 96 02/03/24 09:43 Oxygen Delivery Method Room Air 02/03/24 09:43 BMI result Body Mass Index 29.3 Tobacco/Smoking Status: Tobacco use Status Tobacco use date assessed 06/06/23 02/03/24 09:33 Patient Tobacco Use Status Former Tobacco user 02/03/24 09:33 e-Cigarette/Vaping Use Never Used 02/03/24 09:33 PHQ-9: PHQ-9 Score PHQ-9: Total score 15 02/03/24 09:44 Depression Screening Interpretation: Positive Thrive Assessment: Date of Thrive Assessment Date Thrive assessed 02/03/24 02/03/24 09:44 Currently or been in a relationship where the following occur: I choose not to answer Const General: no acute distress and well developed Nutritional Appearance: well nourished Orientation/consciousness: patient oriented x3 HENMT Head: Yes normocephalic and Yes atraumatic Eyes General: appearance normal, both eyes and all related structures Pupils: Equal, round and reactive pupils present EOM: EOMs intact bilaterally Resp Effort & Inspection: normal respiratory effort Auscultation: clear to auscultation bilaterally Cardio Rate: regular rate Rhythm: regular rhythm Heart sounds: S1 normal heart sound present, S2 normal heart sound present, no gallops, no murmurs and no rubs Neuro General: patient oriented x3 and gait normal Cranial nerves: Yes Equal, round and reactive pupils present Psych Other: Depressed?affect. Pleasant/cooperative Coding Level of Care Code Est Pt Level 3 (71677) Diagnoses Depression F32.A Hypogonadism in male E29.1 Hypothyroidism E03.9 Additional Codes MARIA EUGENIA-7 Assessment Billing - MARIA EUGENIA-7 Assessment Tool: MARIA EUGENIA-7 Assessment 27651 ([id number]) PHQ-9 - 57549 - PHQ-9 Billing: Yes ([id number]) Assessment & Plan Assessment & Plan (1) Depression: Code(s): F32.A - Depression, unspecified Category: Medical Plan: Significantly?worsened?depression?with?episode?of?SI?x1 No?current?SI. Patient?has?been?on?venlafaxine?37.5?mg?daily?since?prior?to?being?my?patient. That?he?would?benefit?from?an?increase?in?this?medication?and?will?bring?this?to ?75?mg?b.i.d. - he?will?start?with?75?mg?q.a.m.?and?titrate?up. Encouraged?increased?exercise?but?not?too?close?to?bedtime I?think?he?would?also?benefit?from?a?therapist?and?possibly?psychiatrist.??I?hav e?referred?him?[place] [place]iatric?[place]. A?discussed?with?patient?that?if?he?is?having?any?further?SI,?he?can?come?here?o r?go?to?emergency?department?crisis?team. Patient?agrees. (2) Hypogonadism in male: Code(s): E29.1 - Testicular hypofunction Category: Medical Plan: Patient?notes?that?he?has?been?diagnosed?with?low?testosterone,?elsewhere. He?says?he?has?received?1?treatment?of?testosterone recently He?can?have?notes?forwarded?to?me (3) Hypothyroidism: Code(s): E03.9 - Hypothyroidism, unspecified Category: Medical Plan: He?is?on?levothyroxine Will?recheck?thyroid?hormone?levels?at?next?visit?in?a?few?weeks. Orders: Referrals Psychiatry Outpatient Consultation Service F32.A - Depression, unspecified Medications: Changed From venlafaxine ER 37.5 mg PO DAILY 90 days 90 caps 2RF To venlafaxine ER 75 mg PO BID 90 days 180 caps 2RF
[2024-02-03 09:43] VITALS: BP 118/62; PULSE 81; RESP 14; TEMP 36.8; O2SAT 96; BMI 29.3
== END 2024-02-03 10:23 | disposition home or self-care (01) ==
PROVIDERS: PCP Family Medicine; Visit Provider Family Medicine
DX: F32.A Depression, unspecified (principal); E29.1 Testicular hypofunction; E03.9 Hypothyroidism, unspecified

== ENCOUNTER → 2024-02-03 09:30 | Outpatient (BNVA) | payer BC, SELFPAY | PROVIDERS: PCP Family Medicine; Visit Provider Family Medicine | DX: F32.A Depression, unspecified (principal); E29.1 Testicular hypofunction; E03.9 Hypothyroidism, unspecified; Z79.899 Other long term (current) drug therapy | CPT/HCPCS: 96127 ==

== ENCOUNTER 2024-02-20 15:58 | Outpatient (AMB) | payer BC, SELFPAY ==
--- NOTE | 2024-02-20 16:23 | MHC.OFFVISPS ---
Intake Intake Visit Reasons: consultation Actuarial Assistant Required: No Allergies No Known Allergies Allergy (Verified 02/03/24 09:37) Medication List - Last Reconciled 02/20/24 by Diana Ha APRN atorvastatin 40 mg PO DAILY 90 days canagliflozin (Invokana) 100 mg PO QAM 90 days gabapentin 300 mg PO QID 90 days glipizide ER 10 mg PO DAILY 90 days insulin syringe-needle U-100 (BD Insulin Syringe Ultra-Fine) USE 1 needle ONCE DAILY TO administer insulin Lantus U-100 Insulin (insulin glargine) 22 units (0.22 mL) subcut BEDTIME 30 days NS levothyroxine One tab daily and an additional half tab on Mondays and Fridays PO daily; 30 days metformin 1,000 mg PO BID 90 days venlafaxine ER 75 mg PO BID 90 days HPI- Psychiatric Chief Complaint: consultation HPI Narrative: Pt referred by PCP for depression and recent SI. Pt says he is depressed because his stepped out on him and its the 4th time; initially very adamant about this; discussed how the mind can play tricks on anyone. He is adamant this is not a mistake in his thinking. Pt says he can not talk to his about it because she gets mad at him. He does not want to leave the marriage; He says in the past he has managed to just stop thinking about it. He states his mood is improving with the increase in venlafaxine. He denies SI or Hi. he says he would not kill himself. he has no plan and no intent; he does admit to having SI 1 & 1/2 weeks ago but increasing the medications and talking to the ironworker apprentice helped; he says talking to TW today is helping; he tells me that his mother was with a lot of men and he had many step fathers- none of whom were reliable. he does not know who his bio father is. He has 3 sisters but he feels he can not talk to them because they talk to his and will tell her everything he says. he talks to his son frequnetly and they work together. he has a 4 yo yellow lab that he takes on walks and enjoys being with. he then tells me that he and his still do things together and they enjoy each others company; she helps him with the neuropathy but massaging his feet; he reflects out loud that they still love each other. He denies any intention of hurting her; he says they never yell or throw things at each other. he denies any HI. He is clear and coherent about his work, his family, his diabetes. His PHQ9= 5 and his MARIA EUGENIA 7 is 3 today. He agrees to come back and talk some more; we discussed the ability to increase the venlafaxine in future if needed and he was open to that. Past Psychiatric History: outpt tx depression No IPOLC Subjective Subjective Subjective Medication Compliance: Yes Side effects from medications: No Review of Systems Medical Review of Systems: unchanged Mental Status Exam Mental Status Exam Patient Appearance: Appropriate (work clothing) Patient Orientation: Person, Place, Time and Situation Level of Consciousness: Awake, Appropriate and Alert Patient Behavior: Appropriate and Cooperative Mood Description: Sad Affect Description: Sad Patient Cognition Impaired: No Ability to Follow Directions: Good Speech Pattern: Clear and Appropriate Memory Description: Intact Delusions: Present (possible but not conclusive - circumscribed ) Thought Process: Rumination Thought Content: positive for Preoccupation Judgement: Fair Assessment and Plan Assessment & Plan (1) Major depressive disorder, recurrent episode, severe with anxious distress: Status: Acute Code(s): F33.2 - Major depressive disorder, recurrent severe without psychotic features Plan differential dx; delusional disorder continue venlafaxine 75mg BID refer to therpay return in 3-4 weeks encouraged pt to continue to do things with that he enjoys and strengthen that relationship if he can pt identified that he maybe able to talk with 's brother Medications: Refilled venlafaxine ER 75 mg PO BID 90 days 180 caps 2RF Counseling and coordination of Care Pt. Self Management counseling: Maintenance-social rhythm, General coping skills and Greif counseling Medication management counseling: Effectiveness, Side effects, Dosing range, Duration, Drug interaction and Adherence Diagnosis and Prognosis Counseling: Accuracy of diagnosis, Prognosis over time, Impact of diagnosis on life functions, Impact of family relationship, Problematic behaviors secondary to diagnosis and Adequacy of current interventions Details: I spent [75] minutes reviewing the record, seeing the patient and documenting in the medical record. Counseling provided to the patient/caregiver as outlined below. Addressed patient/caregiver concerns regarding current medication regime including effective adherence. Addressed patient/caregiver concerns regarding diagnosis and prognosis including accuracy of diagnosis, prognosis over time, impact of diagnosis. Addressed patient/caregiver concerns regarding impact of recent stressors. 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
== END 2024-02-20 17:02 | disposition home or self-care (01) ==
LOC: HO.HOP 15:58
PROVIDERS: PCP Family Medicine; Visit Provider Clinical Nurse Specialist Psychiatric/Mental Health
DX: F33.2 Major depressive disorder, recurrent severe without psychotic features (principal)
CPT/HCPCS: 90792

== ENCOUNTER → 2024-02-20 15:58 | Outpatient (BNVA) | payer BC, SELFPAY | PROVIDERS: PCP Family Medicine; Visit Provider Clinical Nurse Specialist Psychiatric/Mental Health | DX: F33.2 Major depressive disorder, recurrent severe without psychotic features (principal) | CPT/HCPCS: 90792 ==

== ENCOUNTER 2024-03-12 09:55 | Outpatient (AMB) | payer OTHER, SELFPAY ==
--- NOTE | 2024-03-12 10:05 | MHC.OFFVISPS ---
Intake Intake Visit Reasons: f/u consultation Customer Service Professional Required: No Allergies No Known Allergies Allergy (Verified 02/03/24 09:37) Medication List - Last Reconciled 03/12/24 by Diana Ha APRN atorvastatin 40 mg PO DAILY 90 days canagliflozin (Invokana) 100 mg PO QAM 90 days gabapentin 300 mg PO QID 90 days glipizide ER 10 mg PO DAILY 90 days insulin syringe-needle U-100 (BD Insulin Syringe Ultra-Fine) USE 1 needle ONCE DAILY TO administer insulin Lantus U-100 Insulin (insulin glargine) 22 units (0.22 mL) subcut BEDTIME 30 days NS levothyroxine One tab daily and an additional half tab on Mondays and Fridays PO daily; 30 days metformin 1,000 mg PO BID 90 days venlafaxine ER 75 mg PO BID 90 days HPI- Psychiatric Chief Complaint: f/u consultation HPI Narrative: pt reports compliance with medications; he is upset today that his work place changed his shift from days to 12- 8 pm. He says it makes it hard for him to be on a schedule for meals and diabetes management; He is still irritable but less so that last visit; he still believes his had affair. He also reported extensive childhood trauma; I encouraged him to work with a therpist but he is reluctant. He denies HI or SI. reports sleep intact. Past Psychiatric History: outpt tx depression No IPOLC Subjective Subjective Subjective Medication Compliance: Yes Side effects from medications: No Review of Systems Medical Review of Systems: unchanged Mental Status Exam Mental Status Exam Patient Appearance: Well Grooomed and Appropriate Patient Orientation: Person, Place and Time Level of Consciousness: Awake and Appropriate Patient Behavior: Appropriate and Restless Mood Description: Angry (irritable) Affect Description: Sad Patient Cognition Impaired: No Ability to Follow Directions: Good Speech Pattern: Clear Memory Description: Intact Hallucinations: None Delusions: Paranoid Ideation (possibly paranoid ideas about 's infidelity) Thought Process: Intact and Goal Oriented Thought Content: positive for Intact and positive for [place] Judgement: Fair Assessment and Plan Assessment & Plan (1) Major depressive disorder, recurrent episode, severe with anxious distress: Status: Acute Code(s): F33.2 - Major depressive disorder, recurrent severe without psychotic features Medications: Refilled venlafaxine ER 75 mg PO BID 90 days 180 caps 2RF Counseling and coordination of Care Pt. Self Management counseling: Maintenance-social rhythm, Mod caffeine/ETOH intake, Sleep hygiene, General coping skills and Problem solving Details-Self Mgmt counseling: CBT and motivational interviewing to gauge willingness and ability to take perspective and look at alternative to his beliefs Medication management counseling: Effectiveness, Side effects, Dosing range, Duration, Drug interaction and Adherence Diagnosis and Prognosis Counseling: Accuracy of diagnosis, Prognosis over time, Impact of diagnosis on life functions, Impact of family relationship, Problematic behaviors secondary to diagnosis and Adequacy of current interventions Details: I spent [] minutes reviewing the record, seeing the patient and documenting in the medical record. Counseling provided to the patient/caregiver as outlined below. Addressed patient/caregiver concerns regarding current medication regime including effective adherence. Addressed patient/caregiver concerns regarding diagnosis and prognosis including accuracy of diagnosis, prognosis over time, impact of diagnosis. Addressed patient/caregiver concerns regarding impact of recent stressors. 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
== END 2024-03-12 10:30 | disposition home or self-care (01) ==
LOC: HO.HOP 09:55
PROVIDERS: PCP Family Medicine; Visit Provider Clinical Nurse Specialist Psychiatric/Mental Health
DX: F33.2 Major depressive disorder, recurrent severe without psychotic features (principal)
CPT/HCPCS: 90833; 99214

== ENCOUNTER → 2024-03-12 09:55 | Outpatient (BNVA) | payer OTHER, SELFPAY | PROVIDERS: PCP Family Medicine; Visit Provider Clinical Nurse Specialist Psychiatric/Mental Health ==

== ENCOUNTER 2024-05-05 08:43 | Outpatient (AMB) | payer OTHER, SELFPAY ==
--- NOTE | 2024-05-05 08:59 | A.OFFPC_ITS ---
Vital Signs 05/05/24 09:01 Height 5 ft 11 in Weight 210 lb 4 oz BMI 29.3 BP 130/70 Blood Pressure Location Lt brachial Position Sitting Respiration 14 Pulse 77 Pulse Source Pulse Oximeter Temp 97.8 F Temp Source Oral Pulse Oximetry (%) 94 Oxygen Delivery Method Room Air Intake Visit Reasons: f/u diabetes Intake Note: follow up for dm Necktie Centralizing Machine Operator Required: No Allergies No Known Allergies Allergy (Verified 05/05/24 09:00) Medication List - Last Reconciled 05/05/24 by Geo Funk MD atorvastatin 40 mg PO DAILY 90 days canagliflozin (Invokana) 100 mg PO QAM 90 days gabapentin 300 mg PO QID 90 days glipizide ER 10 mg PO DAILY 90 days insulin syringe-needle U-100 (BD Insulin Syringe Ultra-Fine) USE 1 needle ONCE DAILY TO administer insulin Lantus U-100 Insulin (insulin glargine) 22 units (0.22 mL) subcut BEDTIME 30 days NS levothyroxine One tab daily and an additional half tab on Mondays and Fridays PO daily; 30 days metformin 1,000 mg PO BID 90 days venlafaxine ER 75 mg PO BID 90 days Tobacco use date assessed: 06/06/23 Dental Screening Dental Screen Date: 06/06/23 HPI f/u diabetes HPI Details 59 y/o male presents to f/u diabetes. A1c today 6.7%. He is on glipizide 10mg, Lantus 22 units, metformin 1000mg b.i.d. He notes ongoing depression and relationship difficulties. Has seen [facility] psychiatric consult specialist. He does not feel like they could help and pt declines therapy for now. 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 1. Little interest or pleasure in doing things: nearly every day 2. Feeling down, depressed, or hopeless: not at all 3. Trouble falling or staying asleep, or sleeping too much: not at all 4. Feeling tired or having little energy: not at all 5. Poor appetite or overeating: not at all 6. Feeling bad about yourself - or that you are a failure or have let yourself or your family down: not at all 7. Trouble concentrating on things, such as reading the newspaper or watching television: not at all 8. Moving or speaking so slowly that other people could have noticed. Or the opposite - being so fidgety or restless that you have been moving around a lot more than usual: not at all 9. Thoughts that you would be better off or of hurting yourself in some way: not at all Total score: 3 Source: Developed by Drs. Dawson Holland, Priti Tejada, Jefferson Mitchell and colleagues, with an educational roxana from [employer]. Thrive Questionnaire Date Thrive assessed: 02/03/24 I am a: Patient What is your living situation today?: I have a steady place to live Within the past 12 months, did the food you bought not last and you didn't have the money to get more?: Never true Within the past 12 months, did you worry whether your food would run out before you got money to buy more?: Never true Do you have trouble paying for medicines?: No Do you have trouble getting transportation to medical appointments?: No Do you have trouble paying your heating and electricity bill?: No Do you have trouble taking care of your child, family member or friend?: No Do you have trouble with day-to-day activities such as bathing, preparing meals, shopping, managing finances, etc.?: No Are you currently unemployed and looking for a job?: No Are you interested in more education?: No Please select the resources that you would like help with: None Currently or been in a relationship where the following occur: I choose not to answer THRIVE Score: 0 AUDIT C Alcohol Use Questionnaire (AUDIT-C) 1. How often do you have a drink containing alcohol?: Never Total Score: 0 MARIA EUGENIA-7 AMB Questionnaire MARIA EUGENIA-7 Date MARIA EUGENIA - 7 assessed: 02/03/24 Feeling nervous, anxious, or on edge: 0 = Not at all Not being able to stop or control worryin = Not at all Worrying too much about different things: 0 = Not at all Trouble relaxin = Not at all Being so restless that it is hard to sit still: 0 = Not at all Becoming easily annoyed or irritable: 0 = Not at all Feeling afraid as if something awful might happen: 0 = Not at all Total MARIA EUGENIA-7 score (0-4 normal; 5-9 mild; 10-14 moderate; 15-21 severe): 0 Source: Developed by Drs. Dawson Holland, Priti Tejada, Jefferson Mitchell and colleagues, with an educational roxana from [employer]. Review of Systems Const Denies chills, Denies fatigue, Denies fever(s), Denies headache(s) and Denies weakness ENT Denies dizziness and Denies headache(s) Card Denies dyspnea Resp Denies cough, Denies dyspnea, Denies wheezing and Denies other (shortness of breath) Musc Denies numbness and Denies tingling Neuro Denies dizziness, Denies headache(s), Denies numbness, Denies tingling and Denies weakness Psych Denies anxiety and Reports depression Endo Denies fatigue Aller/Immun Denies wheezing Physical exam (Primary Care) Vital Signs: Last Vital Signs Temp 97.8 F 05/05/24 09:01 Pulse 77 05/05/24 09:01 Resp 14 05/05/24 09:01 BP 130/70 05/05/24 09:01 Pulse Ox 94 05/05/24 09:01 Oxygen Delivery Method Room Air 05/05/24 09:01 BMI result Body Mass Index 29.3 Tobacco/Smoking Status: Tobacco use Status Tobacco use date assessed 06/06/23 05/05/24 09:05 Patient Tobacco Use Status Former Tobacco user 05/05/24 09:05 e-Cigarette/Vaping Use Never Used 05/05/24 09:05 PHQ-9: PHQ-9 Score PHQ-9: Total score 3 05/05/24 09:05 Thrive Assessment: Date of Thrive Assessment Date Thrive assessed 02/03/24 05/05/24 09:05 Currently or been in a relationship where the following occur: I choose not to answer Const General: well developed; No acute distress Nutritional Appearance: well nourished Orientation/consciousness: patient oriented x3 [facility] Head: Yes normocephalic and Yes atraumatic Eyes General: appearance normal, both eyes and all related structures Pupils: Equal, round and reactive pupils present EOM: EOMs intact bilaterally Resp Effort & Inspection: normal respiratory effort Auscultation: clear to auscultation bilaterally Cardio Rate: regular rate Rhythm: regular rhythm Heart sounds: S1 normal heart sound present, S2 normal heart sound present, no gallops, no murmurs and no rubs Neuro General: patient oriented x3 and gait normal Cranial nerves: Yes Equal, round and reactive pupils present Psych Affect: normal affect Coding Level of Care Code Est Pt Level 3 (52730) Diagnoses Diabetes E11.9 Depression F32.A Assessment & Plan Assessment & Plan (1) Diabetes: Code(s): E11.9 - Type 2 diabetes mellitus without complications Category: Medical Plan: A1c?6.7%.??Good?control.??Goal?is?less?than?7.0% Continue?current?medication?regimen (2) Depression: Code(s): F32.A - Depression, unspecified Category: Medical Plan: Ongoing?depression. Patient?notes?relationship?issues Had?seen?[facility]?psychiatric?consult?specialist. He?implies?that?he?would?like?a?different?therapist?if?he?wants?to?move?forward? with?one. Offered?to?connect? him?with?another?therapist?and?he?declines?for?now.??He?will?let?me?know?if?want s?a?referral. Taking?venlafaxine?as?prescribed Continue?current?medication?regimen Orders: Orders Microalbumin, Random (w Creat) Today I10 - Essential (primary) hypertension Free T4 (Free Thyroxine) Today E03.9 - Hypothyroidism, unspecified Thyroid Stimulating Hormone Today E03.9 - Hypothyroidism, unspecified Comprehensive [place]. Panel Fast Today Z00.00 - Encounter for general adult medical examination without abnormal findings Lipid Panel Today Z00.00 - Encounter for general adult medical examination without abnormal findings UA and rflx microscopic Today Z00.00 - Encounter for general adult medical examination without abnormal findings Triiodothyronine T3 Total Today E03.9 - Hypothyroidism, unspecified
[2024-05-05 09:01] VITALS: BP 130/70; PULSE 77; RESP 14; TEMP 36.6; O2SAT 94; BMI 29.3
== END 2024-05-05 09:31 | disposition home or self-care (01) ==
LOC: HO.HMCFM 08:44
PROVIDERS: PCP Family Medicine; Visit Provider Family Medicine
DX: E11.9 Type 2 diabetes mellitus without complications (principal); F32.A Depression, unspecified

== ENCOUNTER → 2024-05-05 08:43 | Outpatient (BNVA) | payer OTHER, SELFPAY | PROVIDERS: PCP Family Medicine; Visit Provider Family Medicine | DX: E11.9 Type 2 diabetes mellitus without complications (principal); F32.A Depression, unspecified; Z79.4 Long term (current) use of insulin; Z79.84 Long term (current) use of oral hypoglycemic drugs | CPT/HCPCS: 83036; 96127 ==

== ENCOUNTER 2024-05-07 10:16 | Outpatient (REF) | payer OTHER, SELFPAY ==
[2024-05-07 14:47] LABS: Appearance Urine Turbid; Color Urine Dark Yellow; Glucose Urine UA Negative (Negative); Leukocyte Esterase Urine Negative (Negative); Nitrite Urine Negative (Negative); PH 5.5 (5.0-9.0); Specific Gravity - Urine >= 1.030 (1.005-1.025); UMIC TRIGGER UA YES; Urine Blood Negative (Negative); Urine Ketones Trace mg/dL (Negative); Urine Protein 30 (1+) mg/dL (Neg-Trace)
[2024-05-07 14:50] LABS: Bacteria Urine None Seen (None Seen); Hyaline Casts Urine 0-2 /LPF (0-2); RBC Urine 0-2 /HPF (0-2); Squamous Epithelial Cell Urine 0-2 /HPF (0-2); WBC Urine 0-5 /HPF (0-5)
[2024-05-07 15:36] LABS: Creatinine Urine 292.19 mg/dL; Microalbum/Creatinine Ratio Ur 19.5 ug/mg cr (<30)
[2024-05-07 17:29] LABS: Alanine Aminotransferase 24 U/L (0-40); Albumin Level 4.4 g/dL (3.5-5.0); Alkaline Phosphatase 55 U/L (39-117); Anion Gap 12 (12-20); Aspartate Amino Transferase 32 U/L (5-37); Blood Urea Nitrogen 19 mg/dL (9-16); Calcium 9.4 mg/dL (8.4-10.2); Carbon Dioxide 28 mmol/L (22-29); Chloride 104 mmol/L (96-108); Cholesterol 108 mg/dL (<200); Estimated Glomerular Filt Rate > 60; Glucose Fasting 127 mg/dL (60-99); HDL Cholesterol 46 mg/dL (>40); LDL Cholesterol Calculated 53 mg/dL (<100); Potassium 4.3 mmol/L (3.3-5.1); Sodium 140 mmol/L (135-145); Thyroid Stimulating Hormone 9.73 uIU/mL (0.32-4.0); Total Protein 7.8 g/dL (6.5-8.0); Triglycerides 47 mg/dL (<150)
[2024-05-08 05:44] LABS: Triiodothyronine T3 Total 81 ng/dL (76-181)
== END 2024-05-07 10:17 | disposition home or self-care (01) ==
LOC: HO.WFDLDS 10:16
PROVIDERS: Visit Provider Family Medicine
DX: Z00.00 Encounter for general adult medical examination without abnormal findings (principal); I10 Essential (primary) hypertension; E03.9 Hypothyroidism, unspecified
CPT/HCPCS: 36415; 80053; 80061; 81001; 82043; 82570; 84439; 84443; 84480

== ENCOUNTER 2024-08-18 08:23 | Outpatient (AMB) | payer OTHER, SELFPAY ==
--- NOTE | 2024-08-18 08:43 | MHC.PC.OV ---
Vital Signs 08/18/24 08:44 Height 5 ft 11 in Weight 215 lb 6 oz BMI 30.0 BP 130/70 Blood Pressure Location Rt brachial Position Sitting Respiration 14 Pulse 83 Pulse Source Pulse Oximeter Temp 98.5 F Temp Source Oral Pulse Oximetry (%) 94 Oxygen Delivery Method Room Air Intake Visit Reasons: f/u diabetes, hypothyroidism, labs Intake Note: patient is scheduled for dm and lab review Rn Case Manager Required: No Allergies No Known Allergies Allergy (Verified 08/18/24 08:43) Tobacco use date assessed: 06/06/23 Dental Screening Dental Screen Date: 06/06/23 HPI f/u diabetes, hypothyroidism, labs HPI Details 59 y/o male presents to f/u diabetes, hypothyroidism, labs. Last A1c 05/05/24 6.7%. He is on glipizide 10mg, Lantus 22 units, metformin 1000mg b.i.d. A1c today 7.0%. Labs drawn 05/07/24. Reviewed labs with pt. Triglycerides 47. TC 108. LDL 53. HDL 46. He is on artovastatin 40mg daily. TSH 9.73. He is on levothyroxine. 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) Current occupational exposures/hazards: No Cognitive needs: No Hearing needs: No Vision needs: No Questionnaire Thrive Questionnaire Date Thrive assessed: 05/05/24 I am a: Patient What is your living situation today?: I have a steady place to live Within the past 12 months, did the food you bought not last and you didn't have the money to get more?: Never true Within the past 12 months, did you worry whether your food would run out before you got money to buy more?: Never true Do you have trouble paying for medicines?: No Do you have trouble getting transportation to medical appointments?: No Do you have trouble paying your heating and electricity bill?: No Do you have trouble taking care of your child, family member or friend?: No Do you have trouble with day-to-day activities such as bathing, preparing meals, shopping, managing finances, etc.?: No Are you currently unemployed and looking for a job?: No Are you interested in more education?: No Please select the resources that you would like help with: None Currently or been in a relationship where the following occur: I choose not to answer THRIVE Score: 0 AUDIT C Alcohol Use Questionnaire (AUDIT-C) 2. How many drinks containing alcohol do you have on a typical day when you are drinking?: 1 or 2 3. How often do you have six or more drinks on one occasion?: Never Total Score: 0 MARIA EUGENIA-7 AMB Questionnaire MARIA EUGENIA-7 Date MARIA EUGENIA - 7 assessed: 02/03/24 Source: Developed by Drs. Dawson Holland, Priti Tejada, Jefferson Mitchell and colleagues, with an educational roxana from [employer]. Review of Systems Const Denies chills, Denies fatigue, Denies fever(s), Denies headache(s) and Denies weakness ENT Denies dizziness and Denies headache(s) Card Denies dyspnea Resp Denies cough, Denies dyspnea, Denies wheezing and Denies other (shortness of breath) Musc Denies numbness and Denies tingling Neuro Denies dizziness, Denies headache(s), Denies numbness, Denies tingling and Denies weakness Psych Denies anxiety and Denies depression Endo Denies fatigue Aller/Immun Denies wheezing Physical exam (Primary Care) Vital Signs: Last Vital Signs Temp 98.5 F 08/18/24 08:44 Pulse 83 08/18/24 08:44 Resp 14 08/18/24 08:44 BP 130/70 08/18/24 08:44 Pulse Ox 94 08/18/24 08:44 Oxygen Delivery Method Room Air 08/18/24 08:44 BMI result Body Mass Index 30.0 Tobacco/Smoking Status: Tobacco use Status Tobacco use date assessed 06/06/23 08/18/24 08:46 Patient Tobacco Use Status Former Tobacco user 08/18/24 08:46 e-Cigarette/Vaping Use Never Used 08/18/24 08:46 Thrive Assessment: Date of Thrive Assessment Date Thrive assessed 05/05/24 08/18/24 08:46 Currently or been in a relationship where the following occur: I choose not to answer Const General: well developed; No acute distress Nutritional Appearance: well nourished Orientation/consciousness: patient oriented x3 HENMT Head: Yes normocephalic and Yes atraumatic Eyes General: appearance normal, both eyes and all related structures Pupils: Equal, round and reactive pupils present EOM: EOMs intact bilaterally Resp Effort & Inspection: normal respiratory effort Auscultation: clear to auscultation bilaterally Cardio Rate: regular rate Rhythm: regular rhythm Heart sounds: S1 normal heart sound present, S2 normal heart sound present, no gallops, no murmurs and no rubs Neuro General: patient oriented x3 and gait normal Cranial nerves: Yes Equal, round and reactive pupils present Psych Affect: normal affect Coding Level of Care Code Est Pt Level 4 (73385) Diagnoses Diabetes E11.9 Hypothyroidism E03.9 Hyperlipidemia E78.5 Assessment & Plan Assessment & Plan (1) Diabetes: Code(s): E11.9 - Type 2 diabetes mellitus without complications Category: Medical Plan: A1c?7.0%.??Goal?is?less?than?7.0% His?A1c?climbed?from?6.7%?to?7%?in?the?last?few?months. Also?has?gained?about?5?lb Encouraged?diet?lower?in?sugars?and?starches We?discussed?that?if A1c?continues?to?climb,?we?could?adjust?his?Lantus?at?next?visit Patient?is?a?little?overdue?for?his?eye?exam?and?I?reminded?him?to?call?for?an?appointment. (2) Hypothyroidism: Code(s): E03.9 - Hypothyroidism, unspecified Category: Medical Plan: TSH?is?above?9 Will?increase?his?levothyroxine Script?sent Will?recheck?with?next?blood?draw (3) Hyperlipidemia: Code(s): E78.5 - Hyperlipidemia, unspecified Category: Medical Plan: Lipids?are?well?controlled Continue?medication Medications: New levothyroxine (Synthroid) One tab daily and an additional half tab on Mondays orally daily; 96 tabs 3RF 90 days Discontinued levothyroxine Discontinued Reason: Doctor's Order One tab daily and an additional half tab on Mondays and Fridays PO daily; 30 days 32 tabs 3RF
[2024-08-18 08:44] VITALS: BP 130/70; PULSE 83; RESP 14; TEMP 36.9; O2SAT 94
== END 2024-08-18 09:19 | disposition home or self-care (01) ==
LOC: HO.HMCFM 08:24
PROVIDERS: PCP Family Medicine; Visit Provider Family Medicine
DX: E11.9 Type 2 diabetes mellitus without complications (principal); E03.9 Hypothyroidism, unspecified; E78.5 Hyperlipidemia, unspecified

== ENCOUNTER → 2024-08-18 08:23 | Outpatient (BNVA) | payer OTHER, SELFPAY | PROVIDERS: PCP Family Medicine; Visit Provider Family Medicine | DX: E11.9 Type 2 diabetes mellitus without complications (principal); E03.9 Hypothyroidism, unspecified; E78.5 Hyperlipidemia, unspecified; Z79.84 Long term (current) use of oral hypoglycemic drugs | CPT/HCPCS: 83036 ==

== ENCOUNTER 2025-01-05 10:42 | Outpatient (AMB) | payer OTHER, SELFPAY ==
--- NOTE | 2025-01-05 10:56 | A.OFFPC_ITS ---
Vital Signs 01/05/25 10:59 01/05/25 11:02 Height 5 ft 11 in Weight 212 lb BMI 29.6 BP 146/70 H 130/80 Blood Pressure Location Rt brachial Rt brachial Position Sitting Sitting Respiration 18 Pulse 80 Pulse Source Pulse Oximeter Temp 98.2 F Temp Source Oral Pulse Oximetry (%) 97 Oxygen Delivery Method Room Air Intake Visit Reasons: davey/dog bite Intake Note: patient is scheduled to follow up for a ed follow up for dog bite on left thumb Epic Trainer Required: No Allergies No Known Allergies Allergy (Verified 01/05/25 10:57) Tobacco use date assessed: 06/06/23 Dental Screening Dental Screen Date: 06/06/23 HPI davey/dog bite HPI Details 59 y/o male presents to /[facility] for a dog bite. Pt had initially visited ED 11/20 after being bit by a dog in his L thumb. Second vaccination 11/23 and 11/27 for day 7. Had tolerated rabies vaccine well without any issues. HPI Comments History of Present Illness Details Documentation assistance for Geo Funk MD, was provided by Oseas Albert,? Email Developer on 01/05/2025 at 11:32 AM EST. I, Dr. Funk, have read, observed, and verified documentation. 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) Current occupational exposures/hazards: No Cognitive needs: No Hearing needs: No Vision needs: No Questionnaire Thrive Questionnaire Date Thrive assessed: 05/05/24 I am a: Patient What is your living situation today?: I have a steady place to live Within the past 12 months, did the food you bought not last and you didn't have the money to get more?: Never true Within the past 12 months, did you worry whether your food would run out before you got money to buy more?: Never true Do you have trouble paying for medicines?: No Do you have trouble getting transportation to medical appointments?: No Do you have trouble paying your heating and electricity bill?: No Do you have trouble taking care of your child, family member or friend?: No Do you have trouble with day-to-day activities such as bathing, preparing meals, shopping, managing finances, etc.?: No Are you currently unemployed and looking for a job?: No Are you interested in more education?: No Please select the resources that you would like help with: None Currently or been in a relationship where the following occur: I choose not to answer THRIVE Score: 0 MARIA EUGENIA-7 AMB Questionnaire MARIA EUGENIA-7 Date MARIA EUGENIA - 7 assessed: 02/03/24 Source: Developed by Drs. Dawson Holland, Priti Tejada, Jefferson Mitchell and colleagues, with an educational roxana from [employer]. Review of Systems Const Denies chills, Denies fatigue, Denies fever(s), Denies headache(s) and Denies weakness ENT Denies dizziness and Denies headache(s) Card Denies dyspnea Resp Denies cough, Denies dyspnea, Denies wheezing and Denies other (shortness of breath) Musc Denies numbness and Denies tingling Neuro Denies dizziness, Denies headache(s), Denies numbness, Denies tingling and Denies weakness Psych Denies anxiety and Denies depression Endo Denies fatigue Aller/Immun Denies wheezing Physical exam (Primary Care) Vital Signs: Last Vital Signs Temp 98.2 F 01/05/25 10:59 Pulse 80 01/05/25 10:59 Resp 18 01/05/25 10:59 BP 130/80 01/05/25 11:02 Pulse Ox 97 01/05/25 10:59 Oxygen Delivery Method Room Air 01/05/25 10:59 BMI result Body Mass Index 29.6 Tobacco/Smoking Status: Tobacco use Status Tobacco use date assessed 06/06/23 01/05/25 11:03 Patient Tobacco Use Status Former Tobacco user 01/05/25 11:03 e-Cigarette/Vaping Use Never Used 01/05/25 11:03 Thrive Assessment: Date of Thrive Assessment Date Thrive assessed 05/05/24 01/05/25 11:03 Currently or been in a relationship where the following occur: I choose not to answer Const General: well developed; No acute distress Nutritional Appearance: well nourished Orientation/consciousness: patient oriented x3 HENMT Head: Yes normocephalic and Yes atraumatic Eyes General: appearance normal, both eyes and all related structures Pupils: Equal, round and reactive pupils present EOM: EOMs intact bilaterally Resp Effort & Inspection: normal respiratory effort Neuro General: patient oriented x3 and gait normal Cranial nerves: Yes Equal, round and reactive pupils present Psych Affect: normal affect Coding Level of Care Code Est Pt Level 3 (93365) Diagnoses Dog bite W54.0XXA Assessment & Plan Assessment & Plan (1) Dog bite: Code(s): W54.0XXA - Bitten by dog, initial encounter Category: Medical Plan: S/p dog bite at lateral aspect of left thumb and proximal region of the nail bed No evidence of ongoing infection. He is s/p Tdap and also rabies vaccine series as the dog did not have paperwork to ensure rabies vaccination. Patient has some numbness at distal tip of his thumb. We discuss this may take several months to resolve and occasionally does not resolve. At this point, no further treatment is required - watch for any new redness swelling or discharge
[2025-01-05 10:59] VITALS: BP 146/70; PULSE 80; RESP 18; TEMP 36.8; O2SAT 97; BMI 29.6
[2025-01-05 11:02] VITALS: BP 130/80
--- OUTSIDE RECORDS SUMMARY | 2025-01-05 12:54 | XMS_ITS | Data Portability ---
Author Organization [facility], Telehealth Patient Home Address [address] [place] [address] Assessment Encounter Date Assessment Date Assessment LastModified by Organization Details LastModified Time 03/31/2020 03/31/2020 [id number] [place] [id number] (INTAKE MAN) [facility] MODERATE MUST MEET 2 OUT OF 3 ELEMENTS: PROBLEMS, DATA OR RISK ELEMENT 1: PROBLEMS ADDRESSED OR 2 OR MORE STABLE CHRONIC ILLNESSES OR OR OR ELEMENT 2: DATA MUST MEET 1 OF 3 CATEGORIES CATEGORY 1: REVIEW OF PRIOR EXTERNAL NOTES, REVIEW OF RESULTS, ORDERING OF EACH TEST, ASSESSMENT REQUIRING INDEPENDENT HISTORIAN OR CATEGORY 2: OR CATEGORY 3: ELEMENT 3: RISK RISK OF COMPLICATIONS AND/OR MORBIDITY OR MORTALITY OF PATIENT MANAGEMENT PROVIDER MUST THOROUGHLY DOCUMENT EACH ELEMENT THAT IS COVERED Not available 03/31/2020 10:01:41 08/11/2020 08/11/2020 [id number] [place] [id number] (INTAKE MAN) [facility] MODERATE MUST MEET 2 OUT OF 3 ELEMENTS: PROBLEMS, DATA OR RISK ELEMENT 1: PROBLEMS ADDRESSED 1 OR MORE CHRONIC ILLNESS WITH EXACERBATION OR 2 OR MORE STABLE CHRONIC ILLNESSES OR 1 UNDIAGNOSED NEW PROBLEM OR 1 ACUTE ILLNESS W/SYMPTOMS OR 1 ACUTE COMPLICATED INJURY ELEMENT 2: DATA MUST MEET 1 OF 3 CATEGORIES CATEGORY 1: REVIEW OF PRIOR EXTERNAL NOTES, REVIEW OF RESULTS, ORDERING OF EACH TEST, ASSESSMENT REQUIRING INDEPENDENT HISTORIAN OR CATEGORY 2: INDEPENDENT INTERPRETATION OF TESTS BY ANOTHER PHYSICIAN OR SPECIALIST OR CATEGORY 3: DISCUSSION OF MGT OR TEST INTERPRETATION W/EXTERNAL PHYSICIAN OR SPECIALIST ELEMENT 3: RISK RISK OF COMPLICATIONS AND/OR MORBIDITY OR MORTALITY OF PATIENT MANAGEMENT PROVIDER MUST THOROUGHLY DOCUMENT EACH ELEMENT THAT IS COVERED Not available 08/11/2020 09:53:35 Plan of Treatment Reminders Order Date Submit Date Provider Last Modified By Organization Details Last Modified Time Details Appointments None recorded. Lab HbA1c (hemoglobi n A1c), blood 2020 [facility], [address] [place] [address], [address], 11:19:45 HbA1c (hemoglobi n A1c), blood 2020 [facility], [address] [place] [address], [address], 12:48:09 HbA1c (hemoglobi n A1c), blood 2020 [facility], [address] [place] [address], [address], 11:30:28 HbA1c (hemoglobi n A1c), blood 2020 [facility], [address] [place] [address], [address], 11:30:28 CMP, serum or plasma [address] [facility], [address] [place] [address], [address], 08:11:03 PSA, serum or plasma 2020 [facility], [address] [place] [address], [address], 11:19:45 lipid panel, blood [address] [facility], [address] [place] [address], [address], 08:11:03 TSH + T4, serum [address] [facility], [address] [place] [address], [address], 08:11:03 HbA1c (hemoglobi n A1c), blood 2019 [facility], [address] [place] [address], [place], [address], 0 07:39:33 CMP, serum or plasma 2019 [facility], [address] [place], [address], 0 08:18:32 TSH + T4, serum 2019 [facility], [address] [place], [address], 0 08:10:40 Referral None recorded. Procedures None recorded. Surgeries None recorded. Imaging None recorded. Medication Orders polymyxin B sulfate 10,000 unit-trime thoprim 1 mg/mL eye drops 2019 [facility] - [place], [place], [address], [place], [address], 0 09:01:28 Patient TargetsNo targets recorded. Patient Instructions Encounter Date Encounter Id Patient Instructions Last Modified By Organization Details Last Modified Time 03/23/2019 [id number] learning about type 2 diabetes Not available 03/23/2019 16:33:35 type 2 diabetes: care instructions Not available 03/23/2019 16:33:35 hypothyroidism: care instructions Not available 03/23/2019 16:33:35 07/09/2019 [id number] pinkeye: care instructions Not available 07/09/2019 10:25:31 03/31/2020 [id number] learning about type 2 diabetes Not available 03/31/2020 09:57:42 type 2 diabetes: care instructions Not available 03/31/2020 09:57:42 hypothyroidism: care instructions Not available 03/31/2020 09:57:42 08/11/2020 [id number] diabetic foot exam* Not available 08/11/2020 09:53:35 learning about mood disorders Not available 08/11/2020 09:53:35 hypothyroidism: care instructions [facility] Not available 08/11/2020 09:53:36 Reason for Referral None Reported. Results Created Date Observation Date Name Description Value Unit Range Abnormal Flag Note LastModifiedBy Organization Detail LastModifiedTime Result Notes None recorded. Problems Name Problem SNOMED Code Status Onset Date Resolution Date Notes Provider Name and Address Organization Details Recorded Time Hypothyroidism 55896830 Active 2017 Ivy lopez [facility] 8 13:59:56 Type 2 diabetes mellitus 64960937 Active 2017 Ivygabrielle Pugh [facility] 8 14:02:23 Hypercholester olemia 95010927 Active 2017 Ivy Pugh [facility] 8 14:02:34 Neuropathy 158346524 Active 08/2009 Ivy lopez [facility] 8 14:02:47 Anxiety 32364846 Active 2017 Ivy lopez [facility] 8 14:03:00 Depressive disorder 17474942 Active 2017 Ivy lopez [facility] 8 14:03:07 Notes:2009 Problem Notes None recorded. Procedures Surgical History Date Name Laterality Status Provider Name and Address Organization Details Recorded Time 020 colonoscopy completed Emir Freeman, DO [address] [place] [address], [place], [address] 12/19/2019 09:15:41 Cholecystectomy completed Ivy Pugh [facility] 05/07/2017 14:04:40 Imaging Results None recorded. Procedure Notes None recorded. Medical Equipment None Reported. Allergies No known drug allergies Medications Name Sig Start Date Stop Date Status Note LastModified by Organization Details LastModified Time Prescript ion - Prior Authoriza tion Request 03/31 completed Invokana Not Available Not Available Not Available amoxicill in 500 mg capsule Take 1 capsule every 8 hours by oral route. 01/06 completed Not Available Not Available Not Available venlafaxi ne ER 37.5 mg capsule,e xtended release 24 hr TAKE 1 CAPSULE BY MOUTH ONCE DAILY *CALL FOR OFFICE VISIT FOR REFILLS 2021 active Not Available Not Available Not Avai lable atorvasta tin 20 mg tablet TAKE 1 TABLET BY MOUTH DAILY active Not Available Not Available No t Available atorvasta tin 10 mg tablet Take 1 tablet every day by oral route. 10/08 completed Not Available Not Available Not Available Viagra 50 mg tablet 10/08 completed Not Available Not Available Not Available Lantus U-100 Insulin 100 unit/mL subcutane ous solution Inject 15 unit(s) every day by subcutan eous route at bedtime. active Not Available Not Available No t Available cephalexi n 500 mg capsule Take 1 capsule 3 times a day by oral route for 10 days. 12/15 completed Not Available Not Available Not Available metformin 1,000 mg tablet TAKE 1 TABLET BY MOUTH TWICE DAILY active Not Available Not Available No t Available levothyro xine 125 mcg tablet TAKE 1 TABLET DAILY by mouth AND take an EXTRA HALF TAB ON MON. AND FRI. 2020 active Not Available Not Available Not Avai lable polymyxin B sulfate 10,000 unit-trim ethoprim 1 mg/mL eye drops INSTILL 1 DROP INTO AFFECTED EYE(S) BY OPHTHALM IC ROUTE EVERY 6 HOURS 11/25 completed Not Available Not Available Not Available gabapenti n 300 mg capsule TAKE 1 CAPSULE AT NOON AND AT 8 PM AND TAKE 2 CAPSULES BY MOUTH AT BEDTIME 2021 active Not Available Not Available Not Avai lable Transderm -Scop 1 mg over 3 days transderm al patch 06/16 completed Not Available Not Available Not Available Adacel (Tdap Adolesn/A dult)(PF) 2Lf-(2.5- 5-3-5mcg) -5 Lf/0.5 mL IM susp 11/26 completed Not Available Not Available Not Available Suprep Bowel Prep Kit 17.5 gram-3.13 gram-1.6 gram oral solution 03/31 completed Not Available Not Available Not Available BD Insulin Syringe Ultra-Fin e 1 mL 31 gauge x 5/16 USE 1 syringe ONCE every evening active Not Available Not Available No t Available Invokana 100 mg tablet take 1 tablet by mouth daily before the first meal of the day active Not Available Not Available No t Available Afluria (PF) 45 mcg(15 mcg x 3)/0.5 mL intramusc ular syringe 06/16 completed Not Available Not Available Not Available Flucelvax Quad (PF) 60 mcg (15 mcg x 4)/0.5 mL IM syringe 01/06 completed Not Available Not Available Not Available Fluzone Quad (PF) 60 mcg (15 mcg x 4)/0.5 mL IM syringe 11/25 completed Not Available Not Available Not Available Fluzone Quad (PF) 60 mcg (15 mcg x 4)/0.5 mL IM syringe 03/31 completed Not Available Not Available Not Available Vitals Date Recorded Body height Body mass index (BMI) Body weight Heart rate Oxygen saturation Oxygen saturation in Arterial blood by Pulse oximetry Systolic And Diastolic Provider Name and Address Organization Details Last Updated DateTime 0 177.17 cm 30.2 kg/m2 44350.4 5 g 97 /min 97 % 97 % 126/70 mm[Hg] Su[facility] 0 16:15:18 Date Recorded Body height Body mass index (BMI) Body weight Heart rate Oxygen saturation Oxygen saturation in Arterial blood by Pulse oximetry Systolic And Diastolic Provider Name and Address Organization Details Last Updated DateTime 1 177.17 cm 29.8 kg/m2 73322.4 7 g 73 /min 96 % 96 % 110/70 mm[Hg] Suzi Smith [facility] 1 09:35:27 Date Recorded Body height Body mass index (BMI) Body weight Heart rate Oxygen saturation Oxygen saturation in Arterial blood by Pulse oximetry Systolic And Diastolic Provider Name and Address Organization Details Last Updated DateTime 0 177.17 cm 30.1 kg/m2 88317.6 5 g 96 /min 96 % 96 % 114/72 mm[Hg] Emir Freeman, DO [address] [place], [address], [facility] 0 10:01:04 Date Recorded Body height Body mass index (BMI) Body weight Heart rate Oxygen saturation Oxygen saturation in Arterial blood by Pulse oximetry Systolic And Diastolic Provider Name and Address Organization Details Last Updated DateTime 1 177.17 cm 29.1 kg/m2 79450.4 3 g 76 /min 97 % 97 % 138/80 mm[Hg] Suzi Smith [facility] 1 09:26:57 Date Recorded Body height Heart rate Oxygen saturation Oxygen saturation in Arterial blood by Pulse oximetry Systolic And Diastolic Provider Name and Address Organization Details Last Updated DateTime 0 177.17 cm 94 /min 97 % 97 % 120/70 mm[Hg] Suzi Smith [facility] 0 09:02:15 Social History Question Answer Notes LastModified by Organizat ion Details LastModified Time Tobacco Smoking Status Former Smoker Not Available [facility] 12/28/2019 03:36:23 What Was The Date Of Your Most Recent Tobacco Screening? 08/11/2020 [email or web address] Information not available 08/11/2020 Sex: Unknown Functional Status None recorded. Mental Status None recorded. Family History Relationship Description Onset Age of this Age Resolved Age Notes LastModified by Organization Details LastModified Time Mother Malignant neoplasm of female genital organ suspected 61 [email or web address] Not available 2017 16:10:11 Medical History Condition Response Allergies/Hayfever N Anxiety Disorder Y Heart Problems N Anemia N High Cholesterol Y Anesthesia Complications N Hepatitis N Abuse/Domestic Violence N Immunizations Vaccine Type Date Status Note Provider Nam e and Address Organization Details Recorded Time Influenza, split virus, quadrivalent, preservative 1 completed Suzi lopez [facility] 01/01/2021 10:40:00 Influenza, split virus, quadrivalent, preservative 8 completed Ivy lopez [facility] 01/06/2018 15:42:41 Influenza, split virus, quadrivalent, preservative 9 completed Emir Freeman DO [address] [place] [address], [address], [facility] 12/29/2018 15:53:25 Influenza, split virus, quadrivalent, preservative 0 completed Emir Freeman DO [address] [place] [address] [place], [address], [facility] 11/29/2019 06:40:42 Tdap 8 [facility] 16:46:30 COVID-19 vaccine, vector-nr, rS-ChAdOx1, PF, 0.5 mL 1 completed Ivy lopez [facility] 08/08/2020 10:09:34 Past Encounters Encounter ID Performer Location Encounter Start Date Encounter Closed Date Diagnosis/Indication Diagnosis SNOMED-CT Code Diagnosis ICD10 Code Diagnosis IMO Codes Diagnosis Note [id number] Emir Freeman [facility] [address] [place] [address],[place] [address] 06/16/2017 16:01:30 06/17/2017 08:15:04 Type 2 diabetes mellitus 56071376 E11.9 A1C improved from 8.1 to 7.7, continue invokana & metformin Cramp in lower limb 4499 95118 R25.2 OTC magnesium oxide 400 mg Hypothyroidism 33926388 E03.9 stable Hypercholesterolemia 136 17525 E78.00 stable Neuropathy due to diabetes mellitus 263171493 E11.40 no changes [id number] Emir Freeman [facility] [address] [facility],[place] [address] 10/08/2017 15:41:59 10/08/2017 16:57:37 Hypercholesterolemia 66301680 E78.00 stable Depressive disorder 3548 9007 F32.89 cont venlefaxin e Neuropathy 979007505 G62 .9 on gabapentin Hypothyroidism 10379986 E03.9 stable Type 2 sandoval betes mellitus 64207071 E11.9 Screening procedure 2012 5006 Z13.9 [id number] Emir Freeman [facility] [address] [place] [address],[place] [address] 11/26/2017 16:07:02 11/28/2017 09:58:58 Sialoadenitis 53193212 K11.20 [id number] Emir Freeman [facility] [address] [facility],[place] [address] 12/05/2017 14:02:36 12/05/2017 15:52:11 Parotitis 98730491 K11.20 continue antibiotic s [id number] Emir Freeman DO [facility] [address] [facility],[place] [address] 01/06/2018 15:29:22 01/09/2018 15:44:07 Adult health examination 963962412 Z00.00 Hypercholesterolemia 136 78848 E78.00 stable Depressive disorder 3548 9007 F32.89 cont venlafaxin e Neuropathy 141845234 G62 .9 on gabapentin Hypothyroidism 85330549 E03.9 stable Type 2 sandoval betes mellitus 76400300 E11.9 A1C 8.3, will begin lantus 15 [place] [id number] Emir Freeman DO [facility] [address] [place] [address] 04/08/2018 15:45:44 04/08/2018 16:34:21 Hypercholesterolemia 36651457 E78.00 stable Hypothyroidism 16531450 E03.9 stable Type 2 sandoval betes mellitus 32584410 E11.9 A1C 7.6 improved with beginning lantus 15 units Q pm Neuropathy due to diabetes mellitus 815147025 E11.40 no changes/no meds- very mild [id number] Emir Freeman DO [facility] [address] [place] [address] 08/31/2018 15:43:51 08/31/2018 17:12:35 Type 2 diabetes mellitus 75092043 E11.9 a1c is better using an otc supp which is working (diabazone ) Hypertensive disorder 38 568793 I10 will do well with current tx Cellulitis of left foot 8843164321 3472785 L03.116 discussed in detail about having local wound care etc [id number] Emir Freeman DO [facility] [address] [place] [address] 12/15/2018 16:11:23 12/15/2018 16:42:58 Type 2 diabetes mellitus 59178510 E11.9 a1c could be better but is still overall doing ok as a2c is 7.8 and under the 8.0 cut off {using an otc supp which is working (diabazone )} Anxiety 30199526 F41.9 seems to be ok and is stable Hypothyroidism 69506574 E03.9 will rechk the tsh next lab Hypercholesterolemia 136 17653 E78.00 [id number] Emir Freeman [facility] [address] [facility],[place] [address] 03/23/2019 16:12:05 03/23/2019 16:44:23 Hypothyroidism 12444375 E03.9 will rechk the tsh next lab Type 2 sandoval betes mellitus 76593386 E11.9 a1c could be better is still overall doing ok as a1c is 8.1 and was 7.8 and under the 8.0 cut off {using an otc supp which is working (diabazone )} [id number] Emir Freeman [facility] [address] [facility] [address] 07/09/2019 09:56:53 07/09/2019 10:29:32 Type 2 diabetes mellitus 61674054 E11.9 actually is doing ok with a1c of 7.9 relates has gained a little wgt Hypothyroidism 32692016 E03.9 will rechk the tsh next lab Depressive disorder 3548 9007 F32.9 is stressed with current work times Acute conjunctivitis 537 32904 H10.11 [id number] Emir Freeman [facility] [address] [facility],[place] [address] 11/26/2019 08:57:32 11/26/2019 09:27:56 Type 2 diabetes mellitus 42391134 E11.9 doing well Alc is down working on diet and exercise Hypothyroidism 15123409 E03.9 numbers are good will continue to monitor [id number] Emir Freeman [facility] [address] [facility] [facility] [place] [address] 03/31/2020 09:21:14 03/31/2020 10:44:49 Type 2 diabetes mellitus 87408757 E11.9 actually is doing ok with all lab pending had an a1c of 7.9 relates has gained a little wgt Hypothyroidism 85655465 E03.9 will rechk the tsh next lab Hypercholesterolemia 136 42678 E78.00 will order the cholestero l lab for next visit Anxiety 81457737 F41.9 seems to be ok and is stable [id number] Emir Freeman DO [facility] [address] [facility],[place] [address] 08/11/2020 09:20:46 08/11/2020 10:10:07 Type 2 diabetes mellitus 18071424 E11.9 actually is doing ok with lab had an a1c of 7.7 relates has lost a little wgt Hypothyroidism 91276021 E03.9 will rechk the tsh next lab Depressive disorder 3548 9007 F32.9 is stressed with current work times Neuropathy due to diabetes mellitus 353393951 E11.40 Health Concerns Section Related Observation LastModified by Organization Detai ls LastModified Time None Recorded Concern Status LastModified by Organization Details LastModified Time None Recorded Advance Directives Directive None Recorded Payers Insurance Date Sequence Insurance Name Policy Number Policy Nelson Covered Member ID Nelson Member ID Guarantor Name 12/26/2021 1 [facility] (PPO) [id number] Gab Mercer Tylenda [id number] Gab Tylenda 12/26/2017 2 UNSPECIFIED REMIT PAYOR Gab Tylenda 11/05/2017 2 UNSPECIFIED REMIT PAYOR Gab Tylenda 04/14/2019 1 UNSPECIFIED REMIT PAYOR Gab Tylenda Notes Date Note Type Note Provider Name a nd Address Organization Details Recorded Time 03/23/2019 text/html ROS as noted in the HPI here for rechk in several months diabetes is doing ok stable but hes had a recent bout of flu despite the flu shot Emir Freeman DO [address] [facility], [place], [address], [facility] 03/23/2019 16:35:46 07/09/2019 text/html Hypertension F/UReported by PatientHPIFor medications, patient reportstaking medications as directedandno side effects from medication. For lifestyle, patient reportsregular exercise,limiting/a voiding salt, andcompliant with low salt diet. For associated symptoms, patient reportsno dizziness,no lightheadedness,no chest pain,no shortness of breath,no palpitations,no edema,no calf pain with exertion, andno headache. Diabetes F/UReported by PatientHPIFor context, patient reportsnormal range of home blood sugars (in the low 100s),seeing eye doctor regularly, andchecking feet regularly. For associated symptoms, patient reportsno weight gain,no weight loss,no dizziness,no sweats,no headaches,no confusion,no increased thirst,no increased appetite,no increased urination,no blurred vision,no numbness of feet, andno calluses on feet.ROS as noted in the HPI here for rechk and is doing ok but stressful with covid not sure what sugars are doing but a1c is 7.9 Emir Freeman DO [address] [place], [address], [facility] 07/09/2019 10:26:17 11/26/2019 text/html ROS as noted in the HPI fu type 2 diabetes on both lantus 15 Units and metformin A1c 7.9 to 7.7, which is good no side effects with medication hypothyroidism > stable on 125 mcg, TSH is good doing well on medication tries to stay healthy, eat right and exercise doing well BP 120/70 no fever, no sob, no cough, no abdominal pain, no chest pain, no fatigue, no sore throat, no wheezing GWEN BARBOSA [address] [place], [address], [facility] 11/26/2019 09:26:06 03/31/2020 text/html ROS as noted in the HPI here for dm rechk doing ok overall no major issues Emir Freeman DO [address] [place], [address], [facility] 03/31/2020 10:03:36 08/11/2020 text/html Diabetes F/UReported by PatientHPIFor associated symptoms, patient reportsweight loss (5 lbs)but reportsno weight gain,no dizziness,no sweats,no headaches,no confusion,no increased thirst,no increased appetite,no increased urination,no blurred vision,no numbness of feet, andno calluses on feet. For context, patient reportsnormal range of home blood sugars (in the low 100s),seeing eye doctor regularly, andchecking feet regularly.ROS as noted in the HPI here for rechk and has been doing ok relates he is doing a lot of walking and has noted some pain in his left inguinal area and occurs while walking no cp no sob Emir Freeman, DO [address] [facility], [place], [address], [facility] 08/11/2020 09:54:43
--- OUTSIDE RECORDS SUMMARY | 2025-01-05 12:54 | XMS_ITS | Clinical Summary ---
Author Organization [facility] Address [address] [place] [id number] Phone Care Team Providers Care Breakfast Host Name Role Phone Geo Funk MD Primary Care Provider Allergies Active Allergy Reactions Criticality Noted Date Comments Mohr Pepper Nausea and/or Vomiting 09/01/2023 Onion Nausea and/or Vomiting 09/01/2023 Medications metFORMIN (FORTAMET) 1000 MG (OSM) 24 hr tablet Take 1,000 mg by mouth 2 (two) times a day with meals. Active glipiZIDE (GLUCOTROL XL) 10 MG 24 hr tablet Take 10 mg by mouth daily before breakfast. Active gabapentin (NEURONTIN) 300 MG capsule Take 300 mg by mouth 4 (four) times a day. Active venlafaxine (EFFEXOR-ER,) 37.5 mg TR24 Take 37.5 mg by mouth daily. Active atorvastatin (LIPITOR) 40 MG tablet Take 40 mg by mouth daily. Active levothyroxine (SYNTHROID, LEVOTHROID) 125 MCG tablet Take 125 mcg by mouth every morning. Active insulin glargine (LANTUS) 100 unit/mL injection vial Inject 18 Units under the skin nightly at bedtime. Active testosterone cypionate 200 mg/mL Kit Inject 140 mg into the muscle every 7 days. Active FREESTYLE NIMISHA 3 PLUS SENSOR DeviIndication s:Type 2 diabetes mellitus with peripheral neuropathy 1 each by Miscellaneous route every 15 (fifteen) days. 6 each 3 5 Active BD INSULIN SYRINGE ULTRA-FINE 1 mL 31 gauge x 5/16 Syrg USE 1 needle ONCE DAILY TO administer insulin 5 Active levothyroxine (SYNTHROID, LEVOTHROID) 150 MCG tablet TAKE 1 TABLET BY MOUTH DAILY AND TAKE AN ADDITIONAL 1/2 TAB ON Mondays 5 Active Active Problems Problem Noted Date Diagnosed Date Type 2 diabetes mellitus wit h hyperglycemia, with long-term current use of insulin 09/01/2023 Assessment & Plan (09/01/2023 9:58 PM EDT): Uncontrolled despite being on Metformin 1000mg once daily at lunchtime (instead of twice daily due to fear of hypoglycemia), Glipizide 1 pill in the morning, and Lantus 22 units at night. Patient experiences hypoglycemic episodes, particularly during periods of physical activity at work. Last A1c was over a year ago 7.5%. -Order labs including A1c, kidney and liver function tests. -Reviewed symptoms, prevention and treatment of hypoglycemia. -Consider adjusting Glipizide and/or Lantus dose depending on frequency of hypoglycemic episodes. -May increase metformin to 1000 mg twice a day if renal function allows. -Recommend patient to consider using a continuous glucose monitor (either [employer] Janae 3 or Dexcom G7) to better track blood sugar trends and manage hypoglycemic episodes. Patient will check insurance coverage and let me know which device he prefers. -Encourage mindful eating and portion control, particularly during weekends when blood sugar tends to be higher. --Order urine microalbumin test to assess for diabetic nephropathy, if not done recently. -Encourage hydration, particularly during periods of high blood sugar and physical activity. Acquired hypothyroidism 09/01/2023 Assessment & Plan (06/01/2024 9:08 AM EDT): Had blood work done with PCP, will call to get results to determine if medication adjustments are needed Assessment & Plan (09/01/2023 9:58 PM EDT): Diagnosed many years ago. Clinically and biochemically euthyroid. No palpable thyroid abnormality. Last TSH 2.01 in 04/2022. TSH added to next labs. Rx per PCP. 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 Patient has annual eye exams. -Continue annual eye exams. Type 2 diabetes mellitus with peripheral neuropa thy 09/01/2023 Assessment & Plan (10/22/2024 2:00 PM EDT): Improved control by nimisha CGM download. Rare hypoglycemia usually overnight alerted by CGM. Using 18 units of Lantus at night, 2000 mg metformin with 10 mg glipizide with breakfast. Mild numbness on feet, improved with walking. Weight is stable. -Reviewed symptoms, prevention and treatment of hypoglycemia -If overnight or fasting hypoglycemia, patient to continue to decrease Lantus by 2 units -Continue metformin and glipizide. If repeated hypoglycemia, we may have to decrease the glipizide as well -Labs by PCP -Up-to-date with ophthalmology, next exam in November. -Call with blood sugar problems -Follow-up with Mikala on 02/01/2025 and with me in mid 04/2025 Assessment & Plan (06/01/2024 9:16 AM EDT): Control is good based upon the patient's recall of his A1C. No frequent or severe hypoglycemia. Will maintain his regimen. Will switch from the freestyle nimisha 2 sensors to the freestyle nimisha 3+ sensors, as these look like they can be picked up at the local pharmacy. Continue to work on eating healthy and being active. To call or message with any issues managing his glucose levels. Up to date with ophtho. Labs were done with PCP will call for results Assessment & Plan (03/09/2024 10:46 AM EST): Having more frequent hypoglycemia especially overnight and later in the day since metformin dose was increased to twice a day with improved insulin sensitivity. Last A1c 7.8% by fingerstick at PCPs in 11/2023. By nimisha download average glucose 114, 91% in target, 5% lows within the last 2 weeks. Discussed symptoms, prevention and treatment of hypoglycemia -Decrease the Lantus to 18 units at bedtime. Continue to decrease the Lantus dose by 2 to 4 units if blood sugars below the 70s repeatedly. -Call if blood sugar is getting still low below the 70 range or you are getting sugars up in the 200s repeatedly -Continue the glipizide 10 mg before your breakfast for now -Continue the metformin 1000 mg twice a day Assessment & Plan (12/02/2023 9:08 AM EDT): Control is good based upon the patient's freestyle nimisha 2 sensor download. No frequent or severe hypoglycemia. Will maintain his regimen. Continue to work on eating healthy and being active. To call or message with any issues managing his glucose levels. Up to date with ophtho. Labs were done with PCP will call for results Assessment & Plan (09/01/2023 9:54 PM EDT): Patient also has symptomatic peripheral neuropathy on feet and hands since diagnosis of diabetes, managed well with Gabapentin 300mg four times a day. Rx per PCP. Skin lesion of foot 09/01/2023 Assessment & Plan (09/01/2023 10:05 PM EDT): Patient stepped on a piece of bone with left heel about a week ago. It was initially quite tender, reports improvement in the pain. Over the left heel there is a 9 x 7 mm blister possibly with a foreign body which is painful to pressure, no surrounding erythema nor discharge. Patient took a picture and will continue to monitor it daily. Scheduled to see his PCP on 09/05/2023. Encounters Date Type Department Care Team Description 10/20/2024 8:40 AM EDT Office Visit [facility] [address] [place] [address] Hafsa Browne MD Type 2 diabetes mellitus with peripheral neuropathy (Primary Dx) from Last 3 Months Social History Tobacco Use Types Packs/Day Years Used Date Smoking Tobacco: Former Cigarettes Smokeless Tobacco: Never Alcohol Use Standard Drinks/Week Comments Never 0 (1 standard drink = 0.6 oz pur e alcohol) Education Answer Date Recorded Are you interested in more education? Not on judy e 03/13/2023 Are you concerned about learning? Not on file 03/13/2023 No 03/13/2023 No 03/13/2023 Digital Access Answer Date Recorded No 03/13/2023 No 03/13/2023 Reliable internet access at home? Not on file 03/13/2023 Device with a working camera? Not on file Sex and Gender Information Value Date Recorded Sex Assigned at Not on file Legal Sex Male 11:42 AM EST Gender Identity Not on file Sexual Orientation Not on file Last Filed Vital Signs Vital Sign Reading Time Taken Comments Blood Pressure 116/70 10/20/2024 8:32 AM EDT Pulse 89 10/20/2024 8:32 AM EDT Temperature - - Respiratory Rate - - Oxygen Saturation 98% 10/20/2024 8:32 AM EDT Inhaled Oxygen Concentration - - Weight 96.2 kg (212 lb) 10/20/2024 8:32 AM EDT Height 178 cm (5' 10.08 ) 10/20/2024 8:32 AM EDT Body Mass Index 30.35 10/20/2024 8:32 AM EDT Plan of Treatment Upcoming Encounters Date Type Department Care Team (Late st Contact Info) Description 02/01/2025 9:00 AM EST Office Visit [facility] [address] [place] [address] [place] [address] Latonia Guaman PA-C [address] [place] [phone] 05/11/2025 8:20 AM EDT Office Visit [facility] [address] [place] [address] [place] [address] Hafsa Browne MD [address] [place] [phone] Health Maintenance Due Date Last Done Comments Adult Td,Tdap Booster 1963 DEPRESSION SCREENING 1975 SMOKING Hx and SMOKELESS TOB ACCO SCREENING 1976 HIV ONE-TIME SCREENING (18-6 5 YEARS) 1981 PNEUMOCOCCAL VACCINES (50+ y ears) (1 of 2 - PCV) 1982 COLOGUARD 2008 COLONOSCOPY 2008 COLORECTAL CANCER SCREENING 2008 FIT TEST 2008 FOBT 2008 SIGMOIDOSCOPY 2008 VIRTUAL COLONOSCOPY 2008 RSV VACCINE (1 - Risk 50-74 years 1-dose series) 2013 ZOSTER VACCINES (1 of 2) 2013 HEMOGLOBIN A1C 06/26/2021 12/27/2020 DIABETIC EYE EXAM 09/02/2023 URINE MICROALBUMIN/CREATININ E RATIO 09/02/2023 01/02/2018 CREATININE LEVEL 08/31/2024 09/01/2023 TSH LEVEL 08/31/2024 09/01/2023 INFLUENZA VACCINE (#1) 2024 COVID-19 VACCINE ( - 2024-2 6 season) 2024 BLOOD PRESSURE 04/22/2025 10/20/2024 HEPATITIS C SCREENING Completed 01/02/2018 HEPATITIS A VACCINES Aged Out No long er eligible based on patient's age to complete this topic HIB VACCINES Aged Out No longer eligi ble based on patient's age to complete this topic IPV VACCINES Aged Out No longer eligi ble based on patient's age to complete this topic MENINGOCOCCAL VACCINES (ACWY) Aged Out No longer eligible based on patient's age to complete this topic MENINGOCOCCAL VACCINES (B) Aged Out N o longer eligible based on patient's age to complete this topic Medical Devices Not on file Insurance [facility] Care Teams Breakfast Host Relationship Specialty Start Date End Date Geo Funk MD PCP - General Family Medicine 02/21/23 Additional Source Comments The information contained in this document represents components of the legal health record. It is not the complete legal health record.[facility]
== END 2025-01-05 11:41 | disposition home or self-care (01) ==
LOC: HO.HMCFM 10:43
PROVIDERS: PCP Family Medicine; Visit Provider Family Medicine
DX: S61.032A Puncture wound without foreign body of left thumb without damage to nail, initial encounter (principal); W54.0XXA Bitten by dog, initial encounter

== ENCOUNTER 2025-01-25 09:08 | Outpatient (REF) | payer OTHER, SELFPAY ==
--- OUTSIDE RECORDS SUMMARY | 2025-01-25 09:36 | XMS_ITS | Data Portability ---
Author Organization [facility], Telehealth Patient Home Address [address] [place] [address] Assessment Encounter Date Assessment Date Assessment LastModified by Organization Details LastModified Time 03/31/2020 03/31/2020 [id number] [place] [address] (BOOM TENDER) [facility] MODERATE MUST MEET 2 OUT OF 3 [...] COVERED Not available 03/31/2020 10:01:41 08/11/2020 08/11/2020 [id number] [place] [address] (BOOM TENDER) MDM MODERATE MUST MEET 2 OUT OF [...] Lab HbA1c (hemoglobi n A1c), blood 2020 [facility], [address] [place] [address], [address], 11:19:45 HbA1c (hemoglobi n A1c), blood 2020 [facility], [address] [place] [address], [address], 12:48:09 HbA1c (hemoglobi n A1c), blood 2020 [facility], [address] [place] [address], [address], 11:30:28 HbA1c (hemoglobi n A1c), blood 2020 [facility], [address] [place] [address], [address], 11:30:28 CMP, serum or plasma [address] [facility], [address] [place] [address], [address], 08:11:03 PSA, serum or plasma 2020 [facility], [address] [place] [address], [address], 11:19:45 lipid panel, blood [address] [facility], [address] [place] [address], [address], 08:11:03 TSH + T4, serum [address] [facility], [address] [place] [address], [address], 08:11:03 HbA1c (hemoglobi n A1c), blood 2019 [facility], [address] [place] [address], [place], [address], 0 07:39:33 CMP, serum or plasma 2019 [facility], [address] [place], [address], 0 08:18:32 TSH + T4, serum 2019 [facility], [address] [place], [address], 0 08:10:40 Referral None recorded. Procedures None recorded. Surgeries None recorded. Imaging None recorded. Medication Orders polymyxin B sulfate 10,000 unit-trime thoprim 1 mg/mL eye drops 2019 [facility] - [place], [place], [address] [facility], [place], [address], 0 09:01:28 Patient TargetsNo targets recorded. Patient Instructions Encounter Date Encounter Id Patient Instructions Last Modified By Organization Details Last Modified Time 03/23/2019 [id number] learning about type 2 diabetes Not available 03/23/2019 16:33:35 type 2 diabetes: care instructions Not available 03/23/2019 16:33:35 hypothyroidism: care instructions Not available 03/23/2019 16:33:35 07/09/2019 [id number] pinkeye: care instructions Not available 07/09/2019 10:25:31 03/31/2020 [id number] learning about type 2 diabetes Not available 03/31/2020 09:57:42 type 2 diabetes: care instructions Not available 03/31/2020 09:57:42 hypothyroidism: care instructions Not available 03/31/2020 09:57:42 08/11/2020 [id number] diabetic foot exam* Not available 08/11/2020 09:53:35 learning about mood disorders Not available 08/11/2020 09:53:35 hypothyroidism: [facility] Not [facility] 08/11/2020 09:53:36 Reason for Referral None Reported. Results Created Date Observation Date Name Description Value Unit Range Abnormal Flag Note LastModifiedBy Organization Detail LastModifiedTime Result Notes None recorded. Problems Name Problem SNOMED Code Status Onset Date Resolution Date Notes Provider Name and Address Organization Details Recorded Time Hypothyroidism 90420979 Active 2017 Ivy lopez [facility] 8 13:59:56 Type 2 diabetes mellitus 57318668 Active 2017 Ivygabrielle Pugh [facility] 8 14:02:23 Hypercholester olemia 20090350 Active 2017 Ivy Pugh [facility] 8 14:02:34 Neuropathy 805695967 Active 08/2009 Ivy lopez [facility] 8 14:02:47 Anxiety 07187784 Active 2017 Ivy lopez [facility] 8 14:03:00 Depressive disorder 41576359 Active 2017 Ivy lopez [facility] 8 14:03:07 Notes:2009 Problem Notes None recorded. Procedures Surgical History Date Name Laterality Status Provider Name and Address Organization Details Recorded Time 020 colonoscopy completed Emir Freeman, DO [address] [place] [address], [place], [address] 12/19/2019 09:15:41 Cholecystectomy completed Ivy Pugh [facility] 05/07/2017 14:04:40 Imaging Results None [...] (BMI) Body weight Heart rate Oxygen saturation Systolic And Diastolic Provider Name and Address Organization Details Last Updated DateTime 0 177.17 cm 30.2 kg/m2 59723.4 5 g 97 /min 97 % 126/70 mm[Hg] Suzi Smith [facility] 0 16:15:18 Date Recorded Body height Body mass index (BMI) Body weight Heart rate Oxygen saturation Systolic And Diastolic Provider Name and Address Organization Details Last Updated DateTime 1 177.17 cm 29.8 kg/m2 91196.4 7 g 73 /min 96 % 110/70 mm[Hg] Suzi Smith [facility] 1 09:35:27 Date Recorded Body height Body mass index (BMI) Body weight Heart rate Oxygen saturation Systolic And Diastolic Provider Name and Address Organization Details Last Updated DateTime 0 177.17 cm 30.1 kg/m2 00869.6 5 g 96 /min 96 % 114/72 mm[Hg] Emir Freeman, DO [address] [place], [address] [place] [address] Internal Medicine 0 10:01:04 Date Recorded Body height Body mass index (BMI) Body weight Heart rate Oxygen saturation Systolic And Diastolic Provider Name and Address Organization Details Last Updated DateTime 1 177.17 cm 29.1 kg/m2 28378.4 3 g 76 /min 97 % 138/80 mm[Hg] Suzi Smith [facility] 1 09:26:57 Date Recorded Body height Heart rate Oxygen saturation Systolic And Diastolic Provider Name and Address Organization Details Last Updated DateTime 11/26/2019 177.17 cm 94 /min 97 % 120/70 mm[Hg] Suzi Smith [facility] 11/26/2019 09:02:15 Social History Question Answer Notes LastModified by Organizat ion Details LastModified Time Tobacco Smoking Status Former Smoker Not Available [employer] 12/28/2019 03:36:23 What Was The Date Of Your Most Recent Tobacco Screening? 08/11/2020 [email or web address] Information not available 08/11/2020 Sex: Unknown Functional Status None recorded. Mental Status None recorded. Family History Relationship Description Onset Age of this Age Resolved Age Notes LastModified by Organization Details LastModified Time Mother Malignant neoplasm of female genital organ suspected 61 [email or web address] Not available 2017 16:10:11 Medical History Condition Response Anxiety Disorder Y Allergies/Hayfever N Heart Problems N Anemia N High Cholesterol Y Hepatitis N Anesthesia Complications N Abuse/Domestic Violence N Immunizations Vaccine Type Date Status Note Provider Nam e and Address Organization Details Recorded Time Influenza, split virus, quadrivalent, preservative 1 completed Suzi lopez [facility] 01/01/2021 10:40:00 Influenza, split virus, quadrivalent, preservative 8 completed Ivy loepz [facility] 01/06/2018 15:42:41 Influenza, split virus, quadrivalent, preservative 9 completed Emir Freeman, [address] [place] [address], [address], [facility] 12/29/2018 15:53:25 Influenza, split virus, quadrivalent, preservative 0 completed Emir Freeman DO [address] [place] [address], [address], [facility] 11/29/2019 06:40:42 Tdap 8 completed uSzi lopez [facility] 10/14/2017 16:46:30 COVID-19 vaccine, vector-nr, rS-ChAdOx1, PF, 0.5 mL 1 [facility] 08/08/2020 10:09:34 Past Encounters Encounter ID Performer Location Encounter Start Date Encounter Closed Date Diagnosis/Indication Diagnosis SNOMED-CT Code Diagnosis ICD10 Code Diagnosis IMO Codes Diagnosis Note [id number] Emir Freeman [facility] [address] [facility],[place] [address] 06/16/2017 16:01:30 06/17/2017 08:15:04 Type 2 diabetes mellitus 10330067 E11.9 A1C improved from 8.1 to 7.7, continue invokana & metformin Cramp in lower limb 4499 09017 R25.2 OTC magnesium oxide 400 mg Hypothyroidism 81218403 E03.9 stable Hypercholesterolemia 136 73873 E78.00 stable Neuropathy due to diabetes mellitus 200042022 E11.40 no changes [id number] Emir Freeman [address],[place] [address] 10/08/2017 15:41:59 10/08/2017 16:57:37 Hypercholesterolemia 32017135 E78.00 stable Depressive disorder 3548 9007 F32.89 cont venlefaxin e Neuropathy 017198590 G62 .9 on gabapentin Hypothyroidism 20374768 E03.9 stable Type 2 sandoval betes mellitus 26792616 E11.9 Screening procedure 2012 5006 Z13.9 [id number] Emir Freeman [facility] [address] [facility],[place] [address] 11/26/2017 16:07:02 11/28/2017 09:58:58 Sialoadenitis 25554345 K11.20 [id number] Emir Freeman [facility] [address] [place] [address], [place] [address] 12/05/2017 14:02:36 12/05/2017 15:52:11 Parotitis 61167396 K11.20 continue antibiotic s [id number] Emir Freeman [facility] [address] [place] [address],[place] [address] 01/06/2018 15:29:22 01/09/2018 15:44:07 Adult health examination 375209636 Z00.00 Hypercholesterolemia 136 23756 E78.00 stable Depressive disorder 3548 9007 F32.89 cont venlafaxin e Neuropathy 725709555 G62 .9 on gabapentin Hypothyroidism 07241859 E03.9 stable Type 2 sandoval betes mellitus 44101778 E11.9 A1C 8.3, will [place] [id number] Emir Freeman [facility] [address] [facility],[place] [address] 04/08/2018 15:45:44 04/08/2018 16:34:21 Hypercholesterolemia 11947964 E78.00 stable Hypothyroidism 70716494 E03.9 stable Type 2 sandoval betes mellitus 63629242 E11.9 A1C 7.6 improved with beginning lantus 15 units Q pm Neuropathy due to diabetes mellitus 594855141 E11.40 no changes/no meds- very mild [id number] Emir Freeman [facility] [address] [facility],[place] [address] 08/31/2018 15:43:51 08/31/2018 17:12:35 Type 2 diabetes mellitus 93552431 E11.9 a1c is better using an otc supp which is working (diabazone ) Hypertensive disorder 38 034063 I10 will do well with current tx Cellulitis of left foot 9573353980 6662771 L03.116 discussed in detail about having local wound care etc [id number] Emir Freeman [facility] [address] [facility],[place] [address] 12/15/2018 16:11:23 12/15/2018 16:42:58 Type 2 diabetes mellitus 17904033 E11.9 a1c could be better but is still overall doing ok as a2c is 7.8 and under the 8.0 cut off {using an otc supp which is working (diabazone )} Anxiety 47767266 F41.9 seems to be ok and is stable Hypothyroidism 13140615 E03.9 will rechk the tsh next lab Hypercholesterolemia 136 18666 E78.00 [id number] Emir Freeman [facility] [address] [facility],[place] [address] 03/23/2019 16:12:05 03/23/2019 16:44:23 Hypothyroidism 00507580 E03.9 will rechk the tsh next lab Type 2 sandoval betes mellitus 93919762 E11.9 a1c could be better is still overall doing ok as a1c is 8.1 and was 7.8 and under the 8.0 cut off {using an otc supp which is working (diabazone )} [id number] Emir Freeman [facility] [address] [facility],[place] [address] 07/09/2019 09:56:53 07/09/2019 10:29:32 Type 2 diabetes mellitus 66663032 E11.9 actually is doing ok with a1c of 7.9 relates has gained a little wgt Hypothyroidism 98669435 E03.9 will rechk the tsh next lab Depressive disorder 3548 9007 F32.9 is stressed with current work times Acute conjunctivitis 537 86482 H10.11 [id number] Emir Freeman [facility] [address] [facility],[place] [address] 11/26/2019 08:57:32 11/26/2019 09:27:56 Type 2 diabetes mellitus 23531746 E11.9 doing well Alc is down working on diet and exercise Hypothyroidism 62494090 E03.9 numbers are good will continue to monitor [id number] Emir Freeman [facility] [address] [facility],[place] [address] 03/31/2020 09:21:14 03/31/2020 10:44:49 Type 2 diabetes mellitus 90720878 E11.9 actually is doing ok with all lab pending had an a1c of 7.9 relates has gained a little wgt Hypothyroidism 65803503 E03.9 will rechk the tsh next lab Hypercholesterolemia 136 56834 E78.00 will order the cholestero l lab for next visit Anxiety 47670034 F41.9 seems to be ok and is stable [id number] Emir Freeman [facility] [address] [facility] [address] 08/11/2020 09:20:46 08/11/2020 10:10:07 Type 2 diabetes mellitus 28800090 E11.9 actually is doing ok with lab had an a1c of 7.7 relates has lost a little wgt Hypothyroidism 43906246 E03.9 will rechk the tsh next lab Depressive disorder 3547 9007 F32.9 is stressed with current work times Neuropathy due to diabetes mellitus 588557850 E11.40 Health Concerns Section Related Observation LastModified by Organization Detai ls LastModified Time None Recorded Concern Status LastModified by Organization Details LastModified Time None Recorded Advance Directives Directive None Recorded Payers Insurance Date Sequence Insurance Name Policy Number Policy Nelson Covered Member ID Nelson Member ID Guarantor Name 12/26/2021 1 ELIU (PPO) [id number] Gab Mo [id number] Gab Mo 12/26/2017 2 UNSPECIFIED REMIT PAYOR Gab Tylenda 11/05/2017 2 UNSPECIFIED REMIT PAYOR Gab Tylenda 04/14/2019 1 UNSPECIFIED REMIT PAYOR Gab Chely Notes Date Note Type Note Provider Name a nd Address Organization Details Recorded Time 03/23/2019 text/html ROS as noted in the HPI here for rechk in several months diabetes is doing ok stable but hes had a recent bout of flu despite the flu shot Emir Freeman, DO [address] [facility], [place], [address], [facility] 03/23/2019 16:35:46 07/09/2019 text/html Hypertension [...] a1c is 7.9 Emir Freeman DO [address] [place], [address], [facility] 07/09/2019 10:26:17 11/26/2019 text/html ROS [...] sore throat, no wheezing GWEN BARBOSA [address] [place], [address], [facility] 11/26/2019 09:26:06 03/31/2020 text/html ROS as noted in the HPI here for dm rechk doing ok overall no major issues Emir Freeman DO [address] [place], [address], [facility] 03/31/2020 10:03:36 08/11/2020 text/html Diabetes [...] while walking no cp no sob Emir Freeman DO [address] [place], [address], [facility] 08/11/2020 09:54:43
--- OUTSIDE RECORDS SUMMARY | 2025-01-25 09:36 | XMS_ITS | Clinical Summary ---
Author Organization [facility] Address [address] [place] [address] Phone Care Team Providers Care Grit Blaster Name Role Phone Geo Funk MD Primary [...] consider using a continuous glucose monitor (either [employer] Janae 3 or Dexcom G7) to better [...] Scheduled to see his PCP on 09/05/2023. Social History Tobacco Use Types Packs/Day Years [...] 9:00 AM EST Office Visit [facility] [address] [place] [address] Latonia Guaman PA-C [address] [place] [address] 05/11/2025 8:20 AM EDT Office Visit [facility] [address] [place] [address] [place] [address] Hafsa Browne MD [address] [place] [address] Health Maintenance Due Date Last Done Comments [...] topic Medical Devices Not on file Insurance [facility] [place] [facility] Care Teams Grit Blaster Relationship Specialty Start Date End Date Geo Funk MD PCP - General Family Medicine 02/21/23 Additional Source Comments The information contained in this document represents components of the legal health record. It is not the complete legal health record.[facility]
[2025-01-25 11:19] LABS: MANUAL DIFF FLAG NO
[2025-01-25 11:26] LABS: Appearance Urine Clear; Glucose Urine UA 100 mg/dL (Negative); PH 5.5 (5.0-9.0); Specific Gravity - Urine 1.020 (1.005-1.025)
[2025-01-25 11:31] LABS: Hematocrit 53.0 % (42.0-52.0); Hemoglobin 17.5 g/dl (14.0-18.0); Imm Gran Abs Auto 0.04 X10*3/uL (0.00-0.03); Imm Gran Pct Auto 0.5 % (0.0-0.4); Lymphocytes Absolute Auto 1.9 X10*3/uL (1.2-4.9); Mean Corpuscular HGB Conc 33.0 g/dl (31.0-36.0); Mean Corpuscular Hemoglobin 29.6 pg (27.0-33.0); Mean Corpuscular Volume 89.7 fL (80.0-98.0); NRBC Abs Auto 0.000 X10*3/uL (0.0-0.012); NRBC Pct Auto 0.0 /100WBC (0.0-0.2); Platelet Count 218 X10*3/uL (160-400); Red Blood Count 5.91 X10*6/uL (4.60-5.80); White Blood Count 8.6 X10*3/uL (4.8-10.8)
[2025-01-25 11:58] LABS: Microalbum/Creatinine Ratio Ur 13.5 ug/mg cr (<30)
[2025-01-25 11:58] LABS: Alanine Aminotransferase 27 U/L (0-40); Albumin Level 4.6 g/dL (3.5-5.0); Alkaline Phosphatase 62 U/L (39-117); Anion Gap 12 (12-20); Aspartate Amino Transferase 39 U/L (5-37); Blood Urea Nitrogen 12 mg/dL (9-16); Calcium 9.4 mg/dL (8.4-10.2); Carbon Dioxide 32 mmol/L (22-29); Chloride 100 mmol/L (96-108); Cholesterol 96 mg/dL (<200); Estimated Glomerular Filt Rate > 60; HDL Cholesterol 38 mg/dL (>40); Potassium 4.2 mmol/L (3.3-5.1); Sodium 140 mmol/L (135-145); Total Protein 7.3 g/dL (6.5-8.0); Triglycerides 62 mg/dL (<150)
[2025-01-25 12:16] LABS: Free T4 (Free Thyroxine) 1.07 ng/dL (0.71-1.85); Thyroid Stimulating Hormone 0.37 uIU/mL (0.32-4.0)
== END 2025-01-25 09:09 | disposition home or self-care (01) ==
LOC: HO.WFDLDS 09:08
PROVIDERS: Visit Provider Family Medicine
DX: Z00.00 Encounter for general adult medical examination without abnormal findings (principal); Z12.5 Encounter for screening for malignant neoplasm of prostate; E03.9 Hypothyroidism, unspecified; I10 Essential (primary) hypertension
CPT/HCPCS: 36415; 80048; 80053; 80061; 81003; 82043; 82570; 84153; 84439; 84443; 84480; 85025

== ENCOUNTER 2025-01-26 08:47 | Outpatient (AMB) | payer OTHER, SELFPAY ==
--- NOTE | 2025-01-26 08:50 | A.OFFPC_ITS ---
Vital Signs 01/26/25 08:54 Height 5 ft 11 in Weight 209 lb 8 oz BMI 29.2 BP 132/76 Blood Pressure Location Rt brachial Position Sitting Respiration 13 Pulse 94 Pulse Source Pulse Oximeter Temp 97.2 F Temp Source Oral Pulse Oximetry (%) 96 Oxygen Delivery Method Room Air Intake Visit Reasons: CPE Intake Note: CPE. Patient has questions on meter not working right. 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 Required: No Allergies No Known Allergies Allergy (Verified 01/26/25 08:54) Medication List - Last Reconciled 01/26/25 by Geo Funk MD atorvastatin 40 mg PO DAILY 90 days canagliflozin (Invokana) 100 mg PO QAM 90 days gabapentin 300 mg PO QID 90 days glipizide ER 10 mg PO DAILY 90 days insulin glargine (Lantus U-100 Insulin) 17 units subcut BEDTIME insulin syringe-needle U-100 USE 1 needle ONCE DAILY TO administer insulin levothyroxine (Synthroid) One tab daily and an additional half tab on Mondays orally daily; 90 days metformin 1,000 mg PO BID 90 days venlafaxine ER 75 mg PO BID 90 days Tobacco use date assessed: 01/26/25 Dental Screening Dental Screen Date: 01/26/25 Did you have a dental visit in the last 12 months?: Yes Did you have a dental problem in the last 6 months where you did not have access to dental care?: No Was dental information given to patient?: Patient has dentist HPI CPE HPI Details 59 y/o male presents for a CPE with f/u labs and health maint. Labs drawn 01/25/25. Reviewed labs with pt. RBC, HCT mildly elevated. AST 39, ALT 27. Triglycerides 62. TC 96. LDL 46. HDL low at 38. He is on artovastatin 40mg daily. PSA 0.75 ng/mL.H 0.37 uIU/mL. He is on levothyroxine. Last A1c 08/18/24 7.0%. A1c today 01/26/25 is 7.0%. Reports R leg pain. 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 1. Little interest or pleasure in doing things: not at all 2. Feeling down, depressed, or hopeless: not at all 3. Trouble falling or staying asleep, or sleeping too much: not at all 4. Feeling tired or having little energy: not at all 5. Poor appetite or overeating: not at all 6. Feeling bad about yourself - or that you are a failure or have let yourself or your family down: not at all 7. Trouble concentrating on things, such as reading the newspaper or watching television: not at all 8. Moving or speaking so slowly that other people could have noticed. Or the opposite - being so fidgety or restless that you have been moving around a lot more than usual: not at all 9. Thoughts that you would be better off or of hurting yourself in some way: not at all Total score: 0 Depression Screening Interpretation: Negative Depression Screening Done: Yes 37571 - PHQ-9 Billing: Yes Source: Developed by Drs. Dawson Holland, Priti Tejada, Jefferson Mitchell and colleagues, with an educational roxana from [employer]. Thrive Questionnaire Date Thrive assessed: 01/26/25 I am a: Patient What is your living situation today?: I have a steady place to live Within the past 12 months, did the food you bought not last and you didn't have the money to get more?: Never true Within the past 12 months, did you worry whether your food would run out before you got money to buy more?: Never true Do you have trouble paying for medicines?: No Do you have trouble getting transportation to medical appointments?: No Do you have trouble paying your heating and electricity bill?: No Do you have trouble taking care of your child, family member or friend?: No Do you have trouble with day-to-day activities such as bathing, preparing meals, shopping, managing finances, etc.?: No Are you currently unemployed and looking for a job?: No Are you interested in more education?: No Please select the resources that you would like help with: None Currently or been in a relationship where the following occur: I choose not to answer THRIVE Score: 0 MARIA EUGENIA-7 AMB Questionnaire MARIA EUGENIA-7 Date MARIA EUGENIA - 7 assessed: 01/26/25 Feeling nervous, anxious, or on edge: 0 = Not at all Not being able to stop or control worryin = Not at all Worrying too much about different things: 0 = Not at all Trouble relaxin = Not at all Being so restless that it is hard to sit still: 0 = Not at all Becoming easily annoyed or irritable: 0 = Not at all Feeling afraid as if something awful might happen: 0 = Not at all Total MARIA EUGENIA-7 score (0-4 normal; 5-9 mild; 10-14 moderate; 15-21 severe): 0 Source: Developed by Drs. Dawson Holland, Priti Tejada, Jefferson Mitchell and colleagues, with an educational roxana from [employer]. MARIA EUGENIA-7 Assessment Billing MARIA EUGENIA-7 Assessment Tool: MARIA EUGENIA-7 Assessment 91543 Review of Systems Const Denies chills, Denies fatigue, Denies fever(s), Denies headache(s) and Denies weakness Eyes Denies change in vision ENT Denies dizziness, Denies headache(s), Denies hearing loss, Denies nasal congestion, Denies sinus pain, Denies sinus pressure and Denies sore throat Card Denies chest pain, Denies lightheadedness, Denies dyspnea and Denies other (palpitations) Resp Denies cough, Denies dyspnea and Denies wheezing GI Denies abdominal pain, Denies melena, Denies hematochezia, Denies change in bowel habits, Denies dyspepsia and Denies nausea Denies hematuria and Denies dysuria Musc Denies abnormal gait, Denies myalgias, Denies arthralgias, Denies numbness and Denies tingling Skin/Breast Denies rash, Denies unusual bruising and Denies wounds Neuro Denies abnormal gait, Denies dizziness, Denies headache(s), Denies memory loss, Denies numbness, Denies Sensory deficit (Neuro), Denies tingling and Denies weakness Psych Denies anxiety, Denies depression and Denies memory loss Endo Denies cold intolerance, Denies fatigue, Denies heat intolerance, Denies polydipsia and Denies polyuria Aniket/Lymph Denies easy bleeding and Denies easy bruising Aller/Immun Denies wheezing Physical exam (Primary Care) Vital Signs: Last Vital Signs Temp 97.2 F 01/26/25 08:54 Pulse 94 01/26/25 08:54 Resp 13 01/26/25 08:54 BP 132/76 01/26/25 08:54 Pulse Ox 96 01/26/25 08:54 Oxygen Delivery Method Room Air 01/26/25 08:54 BMI result Body Mass Index 29.2 Tobacco/Smoking Status: Tobacco use Status Tobacco use date assessed 01/26/25 01/26/25 08:56 Patient Tobacco Use Status Former Tobacco user 01/26/25 08:51 e-Cigarette/Vaping Use Never Used 01/26/25 08:51 PHQ-9: PHQ-9 Score PHQ-9: Total score 0 01/26/25 08:56 Depression Screening Interpretation: Negative Thrive Assessment: Date of Thrive Assessment Date Thrive assessed 01/26/25 01/26/25 08:56 Currently or been in a relationship where the following occur: I choose not to answer Const General: no acute distress, well developed, alert and awake Nutritional Appearance: well nourished Orientation/consciousness: patient oriented x3 HENMT Head: Yes normocephalic and Yes atraumatic Ears: hearing grossly normal bilaterally and TM's normal bilaterally General nose exam: Normal external nose present and Normal nares present Mouth: Normal oral and palatal mucosa present and moist mucous membranes Teeth and gingiva: dentition normal Throat: Yes posterior oropharynx normal Eyes General: appearance normal, both eyes and all related structures Pupils: Equal, round and reactive pupils present and Pupil accommodation reflex normal EOM: EOMs intact bilaterally Neck Neck: Yes normal visual inspection, Yes no lymphadenopathy and Yes trachea midline Thyroid: Thyroid normal Carotids: no bruits Lymphatic: no lymphadenopathy noted Chest Chest palpation & inspection: normal inspection of the chest Resp Effort & Inspection: normal respiratory effort Auscultation: clear to auscultation bilaterally Cardio Rate: regular rate Rhythm: regular rhythm Heart sounds: S1 normal heart sound present, S2 normal heart sound present, no gallops, no murmurs and no rubs Bruits: no abdominal aortic bruits and no carotid bruits GI Palpation (GI): No Abdominal aortic bruit present, Soft to palpation, nontender, No hepatosplenomegaly present and No Rebound tenderness present Auscultation: normal bowel sounds General: Yes no CVA tenderness Back/Spine/Pelvis Back: no CVA tenderness Cervical Spine: cervical ROM normal and No Cervical spine tenderness Thoracic/Lumbar Spine: thoraco-lumbar ROM normal, No pain with thoraco-lumbar ROM, No thoracic spinal tenderness and No lumbar spinal tenderness Skin Lesions: no lesions Rashes: no rashes Trauma: no lacerations or abrasions Wounds: no wounds Nails: normal Neuro General: patient oriented x3 Cranial nerves: Yes Equal, round and reactive pupils present Cognition (Neuro): normal cognition Gait exam (Neuro): Normal gait present Motor exam (neuro): 5/5 motor strength present throughout Sensory Exam: No Sensory deficit (Neuro) Deep tendon reflexes (DTR's): Right patellar reflex intensity grade: 2+ and Left patellar reflex intensity grade: 2+ Extrem General: Yes normal to inspection and No edema Psych Appearance: grossly normal Affect: normal affect Attitude: cooperative Thought process: Normal thought process present Results AMB Hemoglobin A1c AMB Hemoglobin A1c 7.0 % Last Edit by Lavell Mann MA on 01/26/25 09:39 Coding Level of Care Code Est Pt Level 3 (86116) Est Pt Prev Care 40-64y(37068) Diagnoses Adult general medical exam Z00.00 Diabetes E11.9 Hypothyroidism E03.9 Hypogonadism in male E29.1 Hyperlipidemia E78.5 Elevated liver enzymes R74.8 Screening for colon cancer Z12.11 Screening for prostate cancer Z12.5 Right leg pain M79.604 Additional Codes MARIA EUGENIA-7 Assessment Billing - MARIA EUGENIA-7 Assessment Tool: MARIA EUGENIA-7 Assessment 25672 ([id number]) PHQ-9 - 57127 - PHQ-9 Billing: Yes ([id number]) Assessment & Plan Assessment & Plan (1) Adult general medical exam: Code(s): Z00.00 - Encounter for general adult medical examination without abnormal findings Category: Medical Plan: 59-year-old male presents for complete physical exam Encouraged healthy diet with active lifestyle and plenty of exercise (2) Diabetes: Code(s): E11.9 - Type 2 diabetes mellitus without complications Category: Medical Plan: A1c 7.0%. Fair control. Goal is less than 7.0% No change to medication regimen today. Encouraged modest weight loss and exercise. Encouraged diabetic diet Patient is having issues with his Becky 3 readings which are not accurate compared with his fingerstick blood sugars There have been issues with Becky 3 sensors and monitors lately. He would like to get a new 1. Would need prior authorization or letter. Will have him discuss with the nurse navigator. May need new sensors, or new monitor or may need new system entirely such as switching to Dexcom. Up-to-date with eye exam (3) Hypothyroidism: Code(s): E03.9 - Hypothyroidism, unspecified Category: Medical Plan: Thyroid hormone levels are now within range Continue current medication (4) Hypogonadism in male: Code(s): E29.1 - Testicular hypofunction Category: Medical Plan: Patient says that he was diagnosed with low testosterone through [facility] He has been on testosterone and still has some left. However, he would like to see a urologist to discuss treatment Referred to urology as patient requested (5) Hyperlipidemia: Code(s): E78.5 - Hyperlipidemia, unspecified Category: Medical Plan: He is taking atorvastatin 40 mg daily as prescribed LDL cholesterol shows good control Mildly low HDL and I encouraged exercise (6) Elevated liver enzymes: Code(s): R74.8 - Abnormal levels of other serum enzymes Category: Medical Plan: Mild elevation in AST He has been using more Tylenol lately and also says he sometimes gets dehydrated work Increase water intake Decreased Tylenol Encouraged a 5-10 lb weight loss He does not drink alcohol (7) Screening for colon cancer: Code(s): Z12.11 - Encounter for screening for malignant neoplasm of colon Category: Medical Plan: Patient says last colonoscopy was at [facility] [place]. May be in [employer] works if prior to 2019 Will ask office to obtain most recent report and we can discuss at next visit (8) Screening for prostate cancer: Code(s): Z12.5 - Encounter for screening for malignant neoplasm of prostate Category: Medical Plan: PSA was within normal range Will continue annual screening (9) Right leg pain: Code(s): M79.604 - Pain in right leg Category: Medical Plan: Right leg muscle pain and strain Start physical therapy Can use Advil Ice/heat He will let me know if this not improving Orders: Orders AMB Hemoglobin A1c Today Z13.9 - Encounter for screening, unspecified Comprehensive Met. Panel Today Z00.00 - Encounter for general adult medical examination without abnormal findings Hemoglobin A1c Today E11.9 - Type 2 diabetes mellitus without complications, R73.01 - Impaired fasting glucose Triiodothyronine T3 Total Today E03.9 - Hypothyroidism, unspecified PT Evaluation and Treatment Today M79.604 - Pain in right leg Free T4 (Free Thyroxine) Today E03.9 - Hypothyroidism, unspecified Thyroid Stimulating Hormone Today E03.9 - Hypothyroidism, unspecified Referrals Nurse Navigator Referral E11.9 - Type 2 diabetes mellitus without complications Urology Referral E29.1 - Testicular hypofunction Medications: Refilled gabapentin 300 mg PO QID 360 caps 2RF 90 days
[2025-01-26 08:54] VITALS: BP 132/76; PULSE 94; RESP 13; TEMP 36.2; O2SAT 96; BMI 29.2
--- OUTSIDE RECORDS SUMMARY | 2025-01-26 09:10 | XMS_ITS | Clinical Summary ---
Author Organization [facility] Address [address] [place] [id number] Phone Care Team Providers Care Kohinoor Operator Name Role Phone Geo Funk MD Primary [...] TAKE AN ADDITIONAL 1/2 TAB ON Mondays Active Active Problems Problem Noted Date Diagnosed [...] consider using a continuous glucose monitor (either Devexstyle Janae 3 or Dexcom G7) to better [...] AM EST Office Visit [facility] [address] [place] [address] Latonia Guaman PA-C [address] [place] [id number] 05/11/2025 8:20 AM EDT Office Visit [facility] [address] [place] [address] Hafsa Browne MD [address] [place] [phone] Health Maintenance Due Date Last Done Comments [...] 09/01/2023 INFLUENZA VACCINE (#1) 2024 COVID-19 VACCINE (2 6 season) 2024 BLOOD PRESSURE 04/22/2025 10/20/2024 [...] topic Medical Devices Not on file Insurance [facility] UNITED POS [facility] UNITED POS Member Subscriber Plan / Payer (Ef fective 2024-) Name:Gab Mo Relation to Subscriber:Self Name:Gab Mo Payer ID:[id number] (NAIC) Group ID:Not on file Type:POS Address: [address] [place] [id number] Care Teams Kohinoor Operator Relationship Specialty Start Date End Date Geo Funk MD PCP - General Family Medicine 02/21/23 Additional Source Comments The information contained in this document represents components of the legal health record. It is not the complete legal health record.[facility]
== END 2025-01-26 09:53 | disposition home or self-care (01) ==
LOC: HO.HMCFM 08:48
PROVIDERS: PCP Family Medicine; Visit Provider Family Medicine
DX: Z00.00 Encounter for general adult medical examination without abnormal findings (principal); E11.9 Type 2 diabetes mellitus without complications; E03.9 Hypothyroidism, unspecified; E29.1 Testicular hypofunction; E78.5 Hyperlipidemia, unspecified; R74.01 Elevation of levels of liver transaminase levels; M79.604 Pain in right leg; S86.911A Strain of unspecified muscle(s) and tendon(s) at lower leg level, right leg, initial encounter; Z12.5 Encounter for screening for malignant neoplasm of prostate

== ENCOUNTER → 2025-01-26 08:47 | Outpatient (BNVA) | payer OTHER, SELFPAY | PROVIDERS: PCP Family Medicine; Visit Provider Family Medicine | DX: Z00.00 Encounter for general adult medical examination without abnormal findings (principal); Z12.11 Encounter for screening for malignant neoplasm of colon; Z12.5 Encounter for screening for malignant neoplasm of prostate; E11.9 Type 2 diabetes mellitus without complications; E03.9 Hypothyroidism, unspecified; E29.1 Testicular hypofunction; E78.5 Hyperlipidemia, unspecified; R74.8 Abnormal levels of other serum enzymes; M79.604 Pain in right leg | CPT/HCPCS: 83036; 96127 ==